=== PATIENT | female | born 1950 | race Caucasian/White ===

== ENCOUNTER 2018-05-25 12:29 | Inpatient (IN) ==
--- NOTE | 2018-05-25 13:18 | Emergency Department Note ---
Disposition Clinical Impression: Encephalitis Fever Qualifiers: Fever type: unspecified Qualified Code(s): R50.9 - Fever, unspecified Headache Qualifiers: Headache type: unspecified Headache chronicity pattern: acute headache Intractability: not intractable Qualified Code(s): R51 - Headache Leukocytosis Qualifiers: Leukocytosis type: unspecified Qualified Code(s): D72.829 - Elevated white blood cell count, unspecified Disposition: Admitted As Inpatient Condition: Good Forms: ED Satisfaction Letter General Adult HPI - General Chief complaint: ED Headache Stated complaint: General Time Seen by Provider: 05/25/18 13:02 Source: patient Limitations: no limitations Nursing Notes Reviewed: Yes Vital Signs Reviewed: Yes - History of Present Illness HPI Narrative: The patient presents today from PCP where she had been evaluated for one week of generalized weakness associated with headache. At the PCP office she was found to have a fever of 101. Patient does present with document fever of 101 and PCP notes. Patient states until then she did not realize she was febrile. Patient was found to have a heart rate of greater than 90 and was sent to the emergency department secondary to concern for sepsis. On exam the patient is complaining of generalized body aches weakness and fatigue. She states that she has had a headache for the last 5 days which she relates to her history of migraines. Patient states that she has pain in her neck which is on the right side and has a specific trigger point around C2. The patient states that she has not had a cough she has not had night sweats she has not had any abdominal pain nausea vomiting constipation diarrhea or urinary complaints. Weakness workup and infectious workup have been initiated. Pain Scale: 10 - Related Data Home Medications Medication Instructions Recorded Confirmed Levothyroxine [Synthroid] 50 mcg PO 0630 05/25/18 05/25/18 Omeprazole [PriLOSEC] 40 mg PO DAILY 05/25/18 05/25/18 Raloxifene [Evista] 60 mg PO DAILY 05/25/18 05/25/18 Ramelteon [Rozerem] 8 mg PO HS 05/25/18 05/25/18 SUMAtriptan Succinate [Imitrex] 100 mg PO DAILY PRN 05/25/18 05/25/18 Simvastatin [Zocor] 10 mg PO HS 05/25/18 05/25/18 Topiramate [Topamax] 50 mg PO BID 05/25/18 05/25/18 Tramadol HCl [Ultram] 50 mg PO Q4H PRN 05/25/18 05/25/18 Allergies Allergy/AdvReac Type Severity Reaction Status Date / Time Cortisone Allergy Difficulty Verified 08/14/15 15:32 Breathing Review of Systems: CONSTITUTIONAL: Fever chills with weakness and fatigue HEENT: Eyes: No visual changes. Ears, Nose, Throat: No hearing loss, difficulty talking or unable to swallow. SKIN: No rash or itching. CARDIOVASCULAR: No chest pain, chest pressure or chest discomfort. No palpitations or edema. RESPIRATORY: No shortness of breath, cough or sputum. GASTROINTESTINAL: No anorexia, nausea, vomiting or diarrhea. No abdominal pain or blood. GENITOURINARY: No burning on urination or hematuria. NEUROLOGICAL: Headache and confusion No dizziness, syncope, paralysis, ataxia, numbness or tingling in the extremities. No change in bowel or bladder control. MUSCULOSKELETAL: No muscle pain, back pain, joint pain or stiffness. Past Medical History - Past Medical History Medical history: Reports: no medical history, asthma, GERD, migraine, thyroid disease Psychiatric history: Reports: no psych history AIRCRAFT REFUELER history: Reports: no AIRCRAFT REFUELER history - Social History Smoking Status: Never smoker Smokeless Tobacco Status: No Alcohol use: Reports: none Physical Exam General: patient states that she just feels weak and headache on her forehead. Patient holds the top of her eyebrows Head: Normocephalic Atraumatic Eyes: PERRL, EOMI ENT: Airway patent, no stridor Neck: supple, no meningismus Chest: Lungs clear to auscultation bilateral Cardiac: Regular rate and rhythm, no murmurs, rubs or gallops Abdomen: soft, nontender, nondistended; no guarding, rebound, or tenderness to percussion Musculoskeletal: Calves symmetric, nontender Skin: No rash, normal skin tone Neuro: Alert and Oriented to person, place, and time; No focal deficit, CN 2-12 symmetric and intact - General Limitations: no limitations General appearance: alert Course - Reevaluation(s) Reevaluation #1: Patient receiving fluids. Patient has been unable to urinate for urine sample. I did discuss with her that she has been here for prolonged period of time without a urine sample should get a straight catheter in order to rule out urinary tract infection. Patient pulled out IV because she states it was hurting her. Nurses attempting a different IV. Reevaluation #2: Urinalysis results do not show significant infection. Her white blood cell count is elevated at 16. Her vital signs have been stable while she has been here with no significant fever. I did further discuss my concerns with both and the patient. She has not felt any better with fluids. Her headache is a frontal headache at this time. Neck pain is on the right side. She has not had any specific sick contacts and has no other signs of infection. I have discussed with them doing an LP. I discussed the risks and benefits. They do understand that due to her headaches and fever she will benefit from having meningitis and encephalitis ruled out. Blood cultures will be obtained. Antibiotics and acyclovir will be started. Patient has no signs of cancer and no neurologic lateralizing features. At this time the patient has had a prolonged stay in the emergency department. Workup is for fever. Head CT was deferred. Further discussions with the patient that did not make it into the initial H&P were episodes of confusion last night she was very irritable and short with the . Was answering yes no questions. She did have several episodes of stuttering while in the emergency department which is uncharacteristic for her. LP was performed by Dr. Chapa. I was present during the entirety of the procedure. First attempt with clear draining fluid. Fluid has been sent for further evaluation. Further fluids antibiotics and acyclovir will be ordered. Patient will be admitted to the hospitalist. - Consultations Consultation #1: Discussed with hospitalist. Patient accepted for admission. Vital Signs Temperature 98.1 F 05/25/18 12:36 Pulse Rate 101 05/25/18 12:36 Respiratory Rate 16 05/25/18 12:36 Blood Pressure 151/77 05/25/18 12:36 O2 Sat by Pulse Oximetry 100 05/25/18 12:36 Temperature 98.1 F 05/25/18 12:36 Pulse Rate 101 05/25/18 12:36 Respiratory Rate 16 05/25/18 12:36 Blood Pressure 151/77 05/25/18 12:36 O2 Sat by Pulse Oximetry 100 05/25/18 12:36 Oxygen Delivery Oxygen Delivery Room Air Medical Decision Making - Medical Records Medical records reviewed: Yes I reviewed the patient's medical records. - Lab Data Lab results reviewed: Yes I reviewed the patient's lab results. Result diagrams: 05/25/18 13:26 05/25/18 13:26 Lab Results 05/25/18 05/25/18 05/25/18 Range/Units 13:26 13:26 13:26 WBC 16.6 H (4.3-11.1) K/mcL RBC 3.89 (3.82-4.97) M/mcL Hgb 11.8 (11.5-15.4) g/dL Hct 36.6 (35.3-44.9) % MCV 94.1 (83.0-100.0) fL MCH 30.3 (28.0-33.3) pg MCHC 32.2 (31.6-35.5) g/dL RDW 12.7 (11.5-14.5) % Plt Count 275 (140-400) K/mcL MPV 9.5 (9.4-12.4) fL Immature Gran % 0.7 (0-4) % Seg Neutrophils % 76.2 % Lymphocytes % 14.1 % Monocytes % 8.8 % Eosinophils % 0.0 % Basophils % 0.2 % Neutrophils # 12.7 H (1.6-8.9) K/mcL Lymphocytes # 2.3 (0.6-4.6) K/mcL Monocytes # 1.5 H (0.0-1.3) K/mcL Eosinophils # 0.0 (0.0-0.6) K/mcL Basophils # 0.0 (0.0-0.2) K/mcL Sodium 138 (136-145) mEq/L Potassium 3.9 (3.5-5.1) mEq/L Chloride 109 H (98-107) mEq/L Carbon Dioxide 23 (23-29) mEq/L BUN 15 (8-23) mg/dL Creatinine 0.84 (0.60-1.20) mg/dL Est GFR ( Amer) > 60 (> 60) Est GFR (Non-Af Amer) > 60 (> 60) BUN/Creatinine Ratio 18 (6-26) Glucose 132 H (70-105) mg/dL Calculated Osmolality 289 (280-300) Calcium 8.4 L (8.6-10.3) mg/dL Total Bilirubin 0.5 (0.3-1.0) mg/dL AST 17 (13-39) Units/L ALT 12 (7-52) Units/L Alkaline Phosphatase 50 (34-104) Units/L Troponin I 0.04 H* (< 0.04) ng/mL Serum Total Protein 6.0 L (6.4-8.9) g/dL Albumin 4.0 (3.5-5.7) g/dL Globulin 2.0 L (2.4-3.5) g/dL Albumin/Globulin Ratio 2.0 (1.1-2.2) TSH 0.444 (0.340-5.600) mcIU/mL Urine Color (Yellow) Urine Clarity (Clear) Urine pH (5.0-8.0) pH Units Ur Specific [place] (1.010-1.025) Urine Protein (Neg-Trace) mg/dL Urine Glucose (UA) (Normal) mg/dL Urine Ketones (Negative) mg/dL Urine Blood (Negative) Urine Nitrite (Negative) Urine Bilirubin (Negative) Urine Urobilinogen (Normal) mg/dL Ur Leukocyte Esterase (Negative) Urine Microscopic RBC (0-3) per hpf Urine Microscopic WBC (0-3) per hpf Ur Squamous Epith Cells (None-Few) per lpf Urine Bacteria (None-Few) per hpf Hyaline Casts (None-Few) per lpf Ur Culture Indicated? (NO) 05/25/18 Range/Units 17:13 WBC (4.3-11.1) K/mcL RBC (3.82-4.97) M/mcL Hgb (11.5-15.4) g/dL Hct (35.3-44.9) % MCV (83.0-100.0) fL MCH (28.0-33.3) pg MCHC (31.6-35.5) g/dL RDW (11.5-14.5) % Plt Count (140-400) K/mcL MPV (9.4-12.4) fL Immature Gran % (0-4) % Seg Neutrophils % % Lymphocytes % % Monocytes % % Eosinophils % % Basophils % % Neutrophils # (1.6-8.9) K/mcL Lymphocytes # (0.6-4.6) K/mcL Monocytes # (0.0-1.3) K/mcL Eosinophils # (0.0-0.6) K/mcL Basophils # (0.0-0.2) K/mcL Sodium (136-145) mEq/L Potassium (3.5-5.1) mEq/L Chloride (98-107) mEq/L Carbon Dioxide (23-29) mEq/L BUN (8-23) mg/dL Creatinine (0.60-1.20) mg/dL Est GFR ( Amer) (> 60) Est GFR (Non-Af Amer) (> 60) BUN/Creatinine Ratio (6-26) Glucose (70-105) mg/dL Calculated Osmolality (280-300) Calcium (8.6-10.3) mg/dL Total Bilirubin (0.3-1.0) mg/dL AST (13-39) Units/L ALT (7-52) Units/L Alkaline Phosphatase (34-104) Units/L Troponin I (< 0.04) ng/mL Serum Total Protein (6.4-8.9) g/dL Albumin (3.5-5.7) g/dL Globulin (2.4-3.5) g/dL Albumin/Globulin Ratio (1.1-2.2) TSH (0.340-5.600) mcIU/mL Urine Color Yellow (Yellow) Urine Clarity Clear (Clear) Urine pH 7.0 (5.0-8.0) pH Units Ur Specific [place] 1.016 (1.010-1.025) Urine Protein Trace (Neg-Trace) mg/dL Urine Glucose (UA) Normal (Normal) mg/dL Urine Ketones 15 H (Negative) mg/dL Urine Blood Trace H (Negative) Urine Nitrite Negative (Negative) Urine Bilirubin Negative (Negative) Urine Urobilinogen Normal (Normal) mg/dL Ur Leukocyte Esterase Negative (Negative) Urine Microscopic RBC 5-15 H (0-3) per hpf Urine Microscopic WBC 0-3 (0-3) per hpf Ur Squamous Epith Cells Many H (None-Few) per lpf Urine Bacteria None Seen (None-Few) per hpf Hyaline Casts None Seen (None-Few) per lpf Ur Culture Indicated? NO (NO) - Radiology Data Radiology results reviewed: Yes I reviewed the patient's radiology results. - EKG Data EKG #1 EKG attestation: Yes I reviewed and interpreted this EKG. EKG results narrative: EKG shows sinus rhythm with heart rate 99. CO interval 152. QRS 87. QTC 478. No significant ST elevations or depressions.
[2018-05-25 13:39] LABS: Basophils % 0.2 %; Hematocrit 36.6 % (35.3-44.9); Hemoglobin 11.8 g/dL (11.5-15.4); Immature Granulocytes % 0.7 % (0-4); Lymphocytes # 2.3 K/mcL (0.6-4.6); Lymphocytes % 14.1 %; Mean Corpuscular HGB Conc 32.2 g/dL (31.6-35.5); Mean Corpuscular Hemoglobin 30.3 pg (28.0-33.3); Mean Corpuscular Volume 94.1 fL (83.0-100.0); Mean Platelet Volume 9.5 fL (9.4-12.4); Monocytes # 1.5 K/mcL (0.0-1.3); Monocytes % 8.8 %; Platelet Count 275 K/mcL (140-400); Red Blood Count 3.89 M/mcL (3.82-4.97); Red Cell Distribution Width 12.7 % (11.5-14.5); Segmented Neutrophils % 76.2 %
[2018-05-25 13:40] LABS: Neutrophils # 12.7 K/mcL (1.6-8.9)
[2018-05-25 14:01] LABS: Alanine Aminotransferase 12 Units/L (7-52); Alkaline Phosphatase 50 Units/L (34-104); Aspartate Amino Transferase 17 Units/L (13-39); BUN/Creatinine Ratio 18 (6-26); Bilirubin,Total 0.5 mg/dL (0.3-1.0); Blood Urea Nitrogen 15 mg/dL (8-23); Calcium 8.4 mg/dL (8.6-10.3); Carbon Dioxide 23 mEq/L (23-29); Chloride 109 mEq/L (98-107); Glucose 132 mg/dL (70-105); Osmolality,Calculated 289 (280-300); Potassium 3.9 mEq/L (3.5-5.1); Sodium 138 mEq/L (136-145); eGFR For Non-African Americans > 60 (> 60)
[2018-05-25 14:05] LABS: Troponin I 0.04 ng/mL (< 0.04)
[2018-05-25] MEDS ORDERED: 0.9 % Sodium Chloride 1,000 ML IVC ONE ×2 (14:31→17:38)
[2018-05-25 17:22] LABS: Bilirubin,Urine Negative (Negative); Blood,Urine Trace (Negative); Clarity,Urine Clear (Clear); Color,Urine Yellow (Yellow); Glucose,Urine (UA) Normal (Normal); Ketones,Urine 15 mg/dL (Negative); Leukocyte Esterase,Urine Negative (Negative); Nitrite,Urine Negative (Negative); Protein,Urine Trace mg/dL (Neg-Trace); Specific Gravity,Urine 1.016 (1.010-1.025); Urobilinogen,Urine Normal (Normal)
[2018-05-25 17:25] LABS: Bacteria,Urine None Seen per hpf (None-Few); Hyaline Casts,Urine None Seen per lpf (None-Few); Squamous Epithelial Cell,Urine Many per lpf (None-Few); WBC,Urine 0-3 per hpf (0-3)
[2018-05-25] MEDS ORDERED: Metoclopramide 10 MG/2 ML VIAL IVP STA (17:37)
[2018-05-25] MEDS ORDERED: Ketorolac 15 MG/ML VIAL IVP STA (17:37)
--- NOTE | 2018-05-25 19:14 | Emergency Department Note ---
Disposition Clinical Impression: Encephalitis Fever Qualifiers: Fever type: unspecified Qualified Code(s): R50.9 - Fever, unspecified Headache Qualifiers: Headache type: unspecified Headache chronicity pattern: acute headache Intractability: not intractable Qualified Code(s): R51 - Headache Leukocytosis Qualifiers: Leukocytosis type: unspecified Qualified Code(s): D72.829 - Elevated white blood cell count, unspecified Disposition: Admitted As Inpatient Condition: Good General Adult HPI - General Chief complaint: ED Headache Stated complaint: General Time Seen by Provider: 05/25/18 13:02 Source: patient Limitations: no limitations Nursing Notes Reviewed: Yes Vital Signs Reviewed: Yes - History of Present Illness HPI Narrative: This note was opened primarily for documentation of the lumbar puncture that was performed by myself, Dr. Shaffer, with Dr. Alvarenga present at patient bedside during the procedure. Please refer to his chart for a completed documentation of the patient's visit. Pain Scale: 10 - Related Data Home Medications Medication Instructions Recorded Confirmed Levothyroxine [Synthroid] 50 mcg PO 0630 05/25/18 05/25/18 Omeprazole [PriLOSEC] 40 mg PO DAILY 05/25/18 05/25/18 Raloxifene [Evista] 60 mg PO DAILY 05/25/18 05/25/18 Ramelteon [Rozerem] 8 mg PO HS 05/25/18 05/25/18 SUMAtriptan Succinate [Imitrex] 100 mg PO DAILY PRN 05/25/18 05/25/18 Simvastatin [Zocor] 10 mg PO HS 05/25/18 05/25/18 Topiramate [Topamax] 50 mg PO BID 05/25/18 05/25/18 Tramadol HCl [Ultram] 50 mg PO Q4H PRN 05/25/18 05/25/18 Allergies Allergy/AdvReac Type Severity Reaction Status Date / Time Cortisone Allergy Difficulty Verified 08/14/15 15:32 Breathing Past Medical History - Past Medical History Medical history: Reports: no medical history, asthma, GERD, migraine, thyroid disease Psychiatric history: Reports: no psych history MANAGER PRIVATE history: Reports: no MANAGER PRIVATE history - Social History Smoking Status: Never smoker Smokeless Tobacco Status: No Alcohol use: Reports: none Physical Exam - General Limitations: no limitations General appearance: alert Course Vital Signs Temperature 98.1 F 05/25/18 12:36 Pulse Rate 101 05/25/18 12:36 Respiratory Rate 16 05/25/18 12:36 Blood Pressure 151/77 05/25/18 12:36 O2 Sat by Pulse Oximetry 100 05/25/18 12:36 Temperature 98.5 F 05/28/18 08:28 Pulse Rate 84 05/28/18 08:28 Respiratory Rate 20 05/28/18 08:28 Blood Pressure 135/79 05/28/18 08:28 O2 Sat by Pulse Oximetry 100 05/28/18 08:28 Oxygen Delivery Oxygen Delivery Room Air Procedures - Lumbar Puncture Consent Obtained: verbal consent, written consent Time Out Performed: Yes Patient Position: left lateral decubitus Skin Prep: Povidone-Iodine 1% Local Anesthetic: lidocaine 1% Spinal Needle Gauge: 20G Interspace Used: L3-L4 Fluid Initially Obtained: clear Complications: none Medical Decision Making - Lab Data Result diagrams: 05/28/18 05:26 05/28/18 11:48 Lab Results 05/25/18 05/25/18 05/25/18 Range/Units 13:26 13:26 13:26 WBC 16.6 H (4.3-11.1) K/mcL RBC 3.89 (3.82-4.97) M/mcL Hgb 11.8 (11.5-15.4) g/dL Hct 36.6 (35.3-44.9) % MCV 94.1 (83.0-100.0) fL MCH 30.3 (28.0-33.3) pg MCHC 32.2 (31.6-35.5) g/dL RDW 12.7 (11.5-14.5) % Plt Count 275 (140-400) K/mcL MPV 9.5 (9.4-12.4) fL Immature Gran % 0.7 (0-4) % Seg Neutrophils % 76.2 % Lymphocytes % 14.1 % Monocytes % 8.8 % Eosinophils % 0.0 % Basophils % 0.2 % Neutrophils # 12.7 H (1.6-8.9) K/mcL Lymphocytes # 2.3 (0.6-4.6) K/mcL Monocytes # 1.5 H (0.0-1.3) K/mcL Eosinophils # 0.0 (0.0-0.6) K/mcL Basophils # 0.0 (0.0-0.2) K/mcL Sodium 138 (136-145) mEq/L Potassium 3.9 (3.5-5.1) mEq/L Chloride 109 H (98-107) mEq/L Carbon Dioxide 23 (23-29) mEq/L BUN 15 (8-23) mg/dL Creatinine 0.84 (0.60-1.20) mg/dL Est GFR ( Amer) > 60 (> 60) Est GFR (Non-Af Amer) > 60 (> 60) BUN/Creatinine Ratio 18 (6-26) Glucose 132 H (70-105) mg/dL Calculated Osmolality 289 (280-300) Lactic Acid (0.5-2.2) mmol/L Calcium 8.4 L (8.6-10.3) mg/dL Total Bilirubin 0.5 (0.3-1.0) mg/dL AST 17 (13-39) Units/L ALT 12 (7-52) Units/L Alkaline Phosphatase 50 (34-104) Units/L Troponin I 0.04 H* (< 0.04) ng/mL Serum Total Protein 6.0 L (6.4-8.9) g/dL Albumin 4.0 (3.5-5.7) g/dL Globulin 2.0 L (2.4-3.5) g/dL Albumin/Globulin Ratio 2.0 (1.1-2.2) TSH 0.444 (0.340-5.600) mcIU/mL Urine Color (Yellow) Urine Clarity (Clear) Urine pH (5.0-8.0) pH Units Ur Specific [place] (1.010-1.025) Urine Protein (Neg-Trace) mg/dL Urine Glucose (UA) (Normal) mg/dL Urine Ketones (Negative) mg/dL Urine Blood (Negative) Urine Nitrite (Negative) Urine Bilirubin (Negative) Urine Urobilinogen (Normal) mg/dL Ur Leukocyte Esterase (Negative) Urine Microscopic RBC (0-3) per hpf Urine Microscopic WBC (0-3) per hpf Ur Squamous Epith Cells (None-Few) per lpf Urine Bacteria (None-Few) per hpf Hyaline Casts (None-Few) per lpf Ur Culture Indicated? (NO) CSF Volume mL CSF Appearance (Clear) CSF Color (Colorless) CSF RBC (0.000 - 0.002) M/mcL CSF Tot Nucleated Cells (0-5) TNC/mcL CSF Seg Neutrophils % CSF Band Neutrophils % CSF Lymphocytes % % CSF Monocytes % % CSF Eosinophils % CSF Basophils % CSF Other Cells % % CSF Glucose (40-70) mg/dL CSF Xanth Comm (Not Observe) CSF Total Protein (15-45) mg/dL HSV I Glycoprot G IgG (<=0.89) IV HSV II Glycoprot G IgG (<=0.89) IV 05/25/18 05/25/18 05/25/18 Range/Units 17:13 18:51 18:57 WBC (4.3-11.1) K/mcL RBC (3.82-4.97) M/mcL Hgb (11.5-15.4) g/dL Hct (35.3-44.9) % MCV (83.0-100.0) fL MCH (28.0-33.3) pg MCHC (31.6-35.5) g/dL RDW (11.5-14.5) % Plt Count (140-400) K/mcL MPV (9.4-12.4) fL Immature Gran % (0-4) % Seg Neutrophils % % Lymphocytes % % Monocytes % % Eosinophils % % Basophils % % Neutrophils # (1.6-8.9) K/mcL Lymphocytes # (0.6-4.6) K/mcL Monocytes # (0.0-1.3) K/mcL Eosinophils # (0.0-0.6) K/mcL Basophils # (0.0-0.2) K/mcL Sodium (136-145) mEq/L Potassium (3.5-5.1) mEq/L Chloride (98-107) mEq/L Carbon Dioxide (23-29) mEq/L BUN (8-23) mg/dL Creatinine (0.60-1.20) mg/dL Est GFR ( Amer) (> 60) Est GFR (Non-Af Amer) (> 60) BUN/Creatinine Ratio (6-26) Glucose (70-105) mg/dL Calculated Osmolality (280-300) Lactic Acid (0.5-2.2) mmol/L Calcium (8.6-10.3) mg/dL Total Bilirubin (0.3-1.0) mg/dL AST (13-39) Units/L ALT (7-52) Units/L Alkaline Phosphatase (34-104) Units/L Troponin I (< 0.04) ng/mL Serum Total Protein (6.4-8.9) g/dL Albumin (3.5-5.7) g/dL Globulin (2.4-3.5) g/dL Albumin/Globulin Ratio (1.1-2.2) TSH (0.340-5.600) mcIU/mL Urine Color Yellow (Yellow) Urine Clarity Clear (Clear) Urine pH 7.0 (5.0-8.0) pH Units Ur Specific [place] 1.016 (1.010-1.025) Urine Protein Trace (Neg-Trace) mg/dL Urine Glucose (UA) Normal (Normal) mg/dL Urine Ketones 15 H (Negative) mg/dL Urine Blood Trace H (Negative) Urine Nitrite Negative (Negative) Urine Bilirubin Negative (Negative) Urine Urobilinogen Normal (Normal) mg/dL Ur Leukocyte Esterase Negative (Negative) Urine Microscopic RBC 5-15 H (0-3) per hpf Urine Microscopic WBC 0-3 (0-3) per hpf Ur Squamous Epith Cells Many H (None-Few) per lpf Urine Bacteria None Seen (None-Few) per hpf Hyaline Casts None Seen (None-Few) per lpf Ur Culture Indicated? NO (NO) CSF Volume 4.0 mL CSF Appearance Clear (Clear) CSF Color Colorless (Colorless) CSF RBC < 0.002 (0.000 - 0.002) M/mcL CSF Tot Nucleated Cells 56 H* (0-5) TNC/mcL CSF Seg Neutrophils 56.0 % CSF Band Neutrophils % Test Not Performed CSF Lymphocytes % 24.0 % CSF Monocytes % 12.0 % CSF Eosinophils % Test Not Performed CSF Basophils % Test Not Performed CSF Other Cells % 8.0 % CSF Glucose 71 H (40-70) mg/dL CSF Xanth Comm Not Observed (Not Observe) CSF Total Protein 59 H (15-45) mg/dL HSV I Glycoprot G IgG 0.51 (<=0.89) IV HSV II Glycoprot G IgG 0.01 (<=0.89) IV 05/25/18 05/25/18 Range/Units 23:02 23:02 WBC (4.3-11.1) K/mcL RBC (3.82-4.97) M/mcL Hgb (11.5-15.4) g/dL Hct (35.3-44.9) % MCV (83.0-100.0) fL MCH (28.0-33.3) pg MCHC (31.6-35.5) g/dL RDW (11.5-14.5) % Plt Count (140-400) K/mcL MPV (9.4-12.4) fL Immature Gran % (0-4) % Seg Neutrophils % % Lymphocytes % % Monocytes % % Eosinophils % % Basophils % % Neutrophils # (1.6-8.9) K/mcL Lymphocytes # (0.6-4.6) K/mcL Monocytes # (0.0-1.3) K/mcL Eosinophils # (0.0-0.6) K/mcL Basophils # (0.0-0.2) K/mcL Sodium (136-145) mEq/L Potassium (3.5-5.1) mEq/L Chloride (98-107) mEq/L Carbon Dioxide (23-29) mEq/L BUN (8-23) mg/dL Creatinine (0.60-1.20) mg/dL Est GFR ( Amer) (> 60) Est GFR (Non-Af Amer) (> 60) BUN/Creatinine Ratio (6-26) Glucose (70-105) mg/dL Calculated Osmolality (280-300) Lactic Acid 0.8 (0.5-2.2) mmol/L Calcium (8.6-10.3) mg/dL Total Bilirubin (0.3-1.0) mg/dL AST (13-39) Units/L ALT (7-52) Units/L Alkaline Phosphatase (34-104) Units/L Troponin I 0.06 H* (< 0.04) ng/mL Serum Total Protein (6.4-8.9) g/dL Albumin (3.5-5.7) g/dL Globulin (2.4-3.5) g/dL Albumin/Globulin Ratio (1.1-2.2) TSH (0.340-5.600) mcIU/mL Urine Color (Yellow) Urine Clarity (Clear) Urine pH (5.0-8.0) pH Units Ur Specific [place] (1.010-1.025) Urine Protein (Neg-Trace) mg/dL Urine Glucose (UA) (Normal) mg/dL Urine Ketones (Negative) mg/dL Urine Blood (Negative) Urine Nitrite (Negative) Urine Bilirubin (Negative) Urine Urobilinogen (Normal) mg/dL Ur Leukocyte Esterase (Negative) Urine Microscopic RBC (0-3) per hpf Urine Microscopic WBC (0-3) per hpf Ur Squamous Epith Cells (None-Few) per lpf Urine Bacteria (None-Few) per hpf Hyaline Casts (None-Few) per lpf Ur Culture Indicated? (NO) CSF Volume mL CSF Appearance (Clear) CSF Color (Colorless) CSF RBC (0.000 - 0.002) M/mcL CSF Tot Nucleated Cells (0-5) TNC/mcL CSF Seg Neutrophils % CSF Band Neutrophils % CSF Lymphocytes % % CSF Monocytes % % CSF Eosinophils % CSF Basophils % CSF Other Cells % % CSF Glucose (40-70) mg/dL CSF Xanth Comm (Not Observe) CSF Total Protein (15-45) mg/dL HSV I Glycoprot G IgG (<=0.89) IV HSV II Glycoprot G IgG (<=0.89) IV
[2018-05-25 19:23] LABS: Red Blood Cell,CSF < 0.002 M/mcL
[2018-05-25] MEDS ORDERED: Ampicillin 2 GM in 0.9 % Sodium Chloride Mini Bag 100 ML IVPB ONE (19:27)
[2018-05-25] MEDS ORDERED: Acyclovir 600 MG in D5% in Water 250 ML IVPB ONE (19:29)
[2018-05-25 19:57] LABS: Glucose,CSF 71 mg/dL (40-70); Total Protein,CSF 59 mg/dL (15-45)
[2018-05-25] MEDS ORDERED: cefTRIAXone 2,000 MG in Water for inj. (sterile) 20 ML 20 ML IVP ONE (20:00)
[2018-05-25] MEDS: Aspirin 325 MG TABLET PO SCH (20:15)
[2018-05-25 20:36] LABS: Appearance,CSF Clear (Clear)
[2018-05-25] MEDS ORDERED: Naloxone 0.4 MG/ML INJ IVP PRN (22:22)
[2018-05-25] MEDS ORDERED: Ondansetron 4 MG/2 ML VIAL IVP PRN (22:36)
--- NOTE | 2018-05-25 22:51 | Internal Med History&Physical ---
Date of Encounter: 05/25/18 Time of Encounter: 22:47 Internal Medicine - H&P: HPI Chief complaint: headache Admitted From: Home Plans for Post Hospital Care: Home History of present illness: Ms. Butler is a 67 year old female who presented from PCP office after being found to have fever 101. Patient reports that in the past week she has been very fatigued and has a headache that is located on the left temporal aspect, which was throbbing in nature and did not improve with sumatriptan. She reports usually her migraines are easily relieved by triptans. Headache radiates down to the neck. Patient denied recent upper respiratory tract infection, sick contacts, nausea, vomiting, diarrhea, abdominal pain, chest pain , shortness of breath, photophobia, phonophobia, blurry vision, double vision, syncope. She has a history of rheumatoid arthritis post does not take any immunosuppressants. She denies sick contacts. She denies being started on the medications. Past Med Surg Social Fam HX - Past Medical History Medical history: no medical history, asthma, GERD, migraine, thyroid disease Psychiatric history: no psych history - Past Surgical History Additional surgical history: Hysterectomy - Social History Smoking Status: Never smoker Smokeless Tobacco Status: No Alcohol use: none Internal Medicine - H&P: Meds Levothyroxine [Synthroid] 50 mcg PO 0630 05/25/18 [History] Omeprazole [PriLOSEC] 40 mg PO DAILY 05/25/18 [History] Raloxifene [Evista] 60 mg PO DAILY 05/25/18 [History] Ramelteon [Rozerem] 8 mg PO HS 05/25/18 [History] SUMAtriptan Succinate [Imitrex] 100 mg PO DAILY PRN 05/25/18 [History] Simvastatin [Zocor] 10 mg PO HS 05/25/18 [History] Topiramate [Topamax] 50 mg PO BID 05/25/18 [History] Tramadol HCl [Ultram] 50 mg PO Q4H PRN 05/25/18 [History] 3 Allergy/AdvReac Type Severity Reaction Status Date / Time Cortisone Allergy Difficulty Verified 08/14/15 15:32 Breathing All Systems PM: A 10-system review of systems was performed and is negative for pertinent findings except as documented above in the HPI. Review of systems: Constitutional: Reports fevers, chills HEENT: Ports headaches. Denies trauma, blurry vision, eye discharge, ear pain, ear discharge neck pain, sore throat, rhinorrhea Heart: Denies chest pain palpitations, LE edema Lungs: Denies shortness of breath cough Abdomen: Denies abdominal pain nausea vomiting diarrhea MSK: Denies back pain, falls, joint pain Kidney: Denies dysuria, hematuria Skin: Denies rash, ulcers Neuro: Denies numbness and tingling Psych: denies axniety, depression - Constitutional Vitals: Temp Pulse Resp BP Pulse Ox 102.8 F H 100 12 136/74 100 05/25/18 21:19 05/25/18 21:19 05/25/18 21:19 05/25/18 21:19 05/25/18 21:19 Exam: General: pleasant, agitated, moderate distress HEENT: Head atraumatic, normocephalic, EOMI, PERRL, absent ear discharge or trauma, Moist Mucous Membranes, uvula midline Neck: nontender to palpation, absent lymphadenopathy, Cardiovascualr: Regular rate and rhythm with no murmur, absent gallops or rubs, absent pedal edema, radial pulses 2 out of 4 Lungs: Clear to auscultation bilaterally, not in respiratory distress Abdomen: Soft nontender, nondistended positive bowel sounds, absent hepatomegaly Skin: warm and dry, absent rash, absent open wounds and nodules MSK: absent clubbing, cyanosis, joints without swelling Neuro: Cranial nerves II through XII intact, UE and LE sensation equal bilaterally, UE and LEstrength 5/5, alert oriented 3, Psych: good insight and judgment, anxious Internal Med - H&P Results - Labs CBC & Chem 7: 05/25/18 13:26 05/25/18 13:26 - Assessment and plan (1) Sepsis Current Visit: Yes Status: Acute Assessment and plan: 2nd to meningitis Leukocytosis, tachycardic, febrile Lactic acid pending Patient received 2 L normal saline UDS negative for infection CXR negative for acute changes Plan: Started on IV acyclovir, vancomycin, ampicillin, ceftriaxone Qualifiers: Sepsis type: sepsis due to unspecified organism Qualified Code(s): A41.9 - Sepsis, unspecified organism (2) Meningitis Current Visit: Yes Status: Acute Assessment and plan: CSF total cells 56, 24% lymphocyte, 54% neutrophils, and 12% monocytes, glucose 71, total protein 59 She reports headache, fatigue positive brudinskis sign CT head negative CSF collected and sent for culture blood cultures drawn CSF HSV 1/2 glycoprotein sent likely aseptic meningitis due to elevated protein and glucose level plan: MRI head to rule out encephalitis, started on acyclovir, vancomycin, ceftriaxone, and ampicillin (3) Rheumatoid arthritis Current Visit: Yes Status: Chronic Assessment and plan: Patient has history of rheumatoid arthritis Reports she is not on any immunosuppressants Qualifiers: Rheumatoid arthritis location: unspecified site Rheumatoid factor presence : unspecified presence Qualified Code(s): M06.9 - Rheumatoid arthritis, unspecified (4) Hypothyroidism Current Visit: Yes Status: Chronic Assessment and plan: Patient has a history of hypothyroidism TSH within normal limits Continue levothyroxine Qualifiers: Hypothyroidism type: unspecified Qualified Code(s): E03.9 - Hypothyroidism , unspecified (5) GERD (gastroesophageal reflux disease) Current Visit: Yes Status: Chronic Assessment and plan: Patient has a history of GERD Continue omeprazole Qualifiers: Esophagitis presence: esophagitis presence not specified Qualified Code(s) : K21.9 - Gastro-esophageal reflux disease without esophagitis (6) Congenital absence of one kidney Current Visit: Yes Status: Chronic - Time Spent With Patient Total time spent is greater than 50% in coordination of care (as documented) at patient's floor/unit and/or counseling patient:
[2018-05-26] MEDS ORDERED: Acyclovir 600 MG in D5% in Water 100 ML IVPB SCH
[2018-05-26] MEDS: D5 IVPB SCH ×3 (01:06→18:05)
[2018-05-26] MEDS: WATER IVPB SCH ×3 (01:06→18:05)
[2018-05-26] MEDS: ACYCLOVIR IVPB SCH ×3 (01:06→18:05)
[2018-05-26] MEDS: Ampicillin 2 GM in 0.9 % Sodium Chloride Mini Bag 100 ML IVPB SCH ×4 (01:40→16:20)
[2018-05-26] MEDS: *HR* Heparin 5,000 UNIT/ML VIAL SQ SCH ×4 (01:41→22:39)
[2018-05-26 05:19] LABS: Basophils % 0.2 %; Eosinophils % 0.1 %; Hematocrit 34.4 % (35.3-44.9); Hemoglobin 11.1 g/dL (11.5-15.4); Immature Granulocytes % 0.5 % (0-4); Lymphocytes # 2.5 K/mcL (0.6-4.6); Lymphocytes % 18.5 %; Mean Corpuscular HGB Conc 32.3 g/dL (31.6-35.5); Mean Corpuscular Hemoglobin 29.8 pg (28.0-33.3); Mean Corpuscular Volume 92.5 fL (83.0-100.0); Mean Platelet Volume 9.4 fL (9.4-12.4); Monocytes # 1.4 K/mcL (0.0-1.3); Monocytes % 10.7 %; Neutrophils # 9.4 K/mcL (1.6-8.9); Platelet Count 259 K/mcL (140-400); Red Blood Count 3.72 M/mcL (3.82-4.97); Red Cell Distribution Width 12.5 % (11.5-14.5)
[2018-05-26 05:54] LABS: BUN/Creatinine Ratio 14 (6-26); Blood Urea Nitrogen 10 mg/dL (8-23); Calcium 7.7 mg/dL (8.6-10.3); Carbon Dioxide 20 mEq/L (23-29); Chloride 113 mEq/L (98-107); Glucose 126 mg/dL (70-105); Osmolality,Calculated 293 (280-300); Potassium 3.1 mEq/L (3.5-5.1); Sodium 141 mEq/L (136-145); eGFR For Non-African Americans > 60 (> 60)
[2018-05-26] MEDS: Acetaminophen 325 MG TABLET PO PRN (06:21)
[2018-05-26] MEDS: Aspirin 325 MG TABLET PO SCH (08:06)
[2018-05-26] MEDS: Topiramate 25 MG TABLET PO SCH ×2 (08:06→22:38)
[2018-05-26] MEDS ORDERED: Aminoglycoside Consult 1 EACH MC ONE (08:27)
[2018-05-26] MEDS ORDERED: Potassium Chloride Elixir 20 MEQ/15 ML UDC PO ONE (08:38)
--- NOTE | 2018-05-26 08:40 | Electrocardiograph Report ---
[place] [employer] Test Date: 2018-05-25 Pat Name: Arlet Butler Department: [id number] Room: 2A41 Gender: F Visual Effects Artist: : 1950 Requested By: [id number] Order Number: [id number] Reading MD: José Olvera Measurements Intervals [place] Rate: 99 P: 55 ID: [id number] QRS: 19 QRSD: 97 T: 36 QT: 372 QTc: 478 Interpretive Statements Sinus rhythm Probable left atrial enlargement RSR' in V1 or V2, right VCD or RVH Electronically Signed On 05-26-2018 8:39:12 EDT by José Olvera
--- NOTE | 2018-05-26 09:53 | Neurology - Consult Note ---
<Manav Ramos P - Last Filed: 05/26/18 11:48> Date of Encounter: 05/26/18 Time of Encounter: 09:00 Assessment and Plan (1) Meningitis Current Visit: Yes Status: Acute The patient has persisted moderately severe headache with nausea and vomiting , photophobia in the background of fever, neck pain with mild stiffness favours suspicion of Meningitis( aseptic vs partially treated bacterial ) .Recent LP report shows slightly elevated protein, normal glucose , a little high neutrophil (CSF analysis: colorless/clear, no Xanthocromia, Glucose 71, Protein 59 , Neutrophil 56 ) CSF gram stain shows moderate white cells and no bacteria seen . CT head shows no acute intracranial abnormality .MRI head , CSF culture report awaited, HSV 1 & 2 glycoprotein report awaited .The patient is already on vancomycin ,ampicillin, ceftriaxone and acyclovir History of Present Illness Chief complaint: Headache , fatigue with fever . HPI: Ms. Butler is a 67 year old female presented to [facility] for felling fatigue, severe throbbing type of headache . She states that she never felt febrile , but temperature recorded at PCP office was 101 .She is a chronic patient of migraine , but this time her headache was not improved with migraine medication /sumitriptan and she has more severe headache with nausea, vomiting ,photophobia and feeling fatigue for a week . The patient states that she has neck pain but denies severe neck stiffness . She is a patient of Rheumatoid arthritis , but not any taking immunosupressive medication.The patient denies any seizure like activities, weakness in limbs, recent upper respiratory tract infection, sick contacts, diarrhea, abdominal pain, chest pain, shortness of breath, syncope, rash, tick bites, recent travel, flu like symptoms in the past . During my visit, the patient was lying in the bed, awake , oriented to time place and person. She has difficulty to open her eyes in bright light . Her vitals: Tem 102.*F / 100.6*F( today), pulse 95, BP 135/71 TLC 16.4 , Neutrophil 9.4 ,Na 141, K 3.1, glucose 126 , CRP 23 CSF analysis: colorless, clear, no Xanthocromia, Glucose 71, Protein 59 , Neutrophil 56 Urine : ketone and blood positive ( RBC 5-15) Head CT : no acute intracranial abnormality CSF culture awaited HSV 1 & 2 Glycoprotein , lagionella antigen pending , MRI head : awaited Past Med Surg Social Fam HX - Past Medical History Medical history: no medical history, asthma, GERD, migraine, thyroid disease Psychiatric history: no psych history - Past Surgical History Surgical History: hysterectomy Additional surgical history: Hysterectomy - Social History Smoking Status: Never smoker Smokeless Tobacco Status: No Alcohol use: none Medications and Allergies Levothyroxine [Synthroid] 50 mcg PO 0630 05/25/18 [History] Omeprazole [PriLOSEC] 40 mg PO DAILY 05/25/18 [History] Raloxifene [Evista] 60 mg PO DAILY 05/25/18 [History] Ramelteon [Rozerem] 8 mg PO HS 05/25/18 [History] SUMAtriptan Succinate [Imitrex] 100 mg PO DAILY PRN 05/25/18 [History] Simvastatin [Zocor] 10 mg PO HS 05/25/18 [History] Topiramate [Topamax] 50 mg PO BID 05/25/18 [History] Tramadol HCl [Ultram] 50 mg PO Q4H PRN 05/25/18 [History] 3 Allergy/AdvReac Type Severity Reaction Status Date / Time Cortisone Allergy Difficulty Verified 08/14/15 15:32 Breathing All Systems: The remainder of the systems were reviewed and are negative Physical Examination - Vital Signs Vital Signs: Initial Vital Signs Temp Pulse Resp BP Pulse Ox 98.1 F 101 16 151/77 100 05/25/18 12:36 05/25/18 12:36 05/25/18 12:36 05/25/18 12:36 05/25/18 12:36 - Constitutional General appearance: comfortable - Neurologic Sensorimotor examination: intact Detailed motor examination: grossly full strength in all extremities Motor examination - right side: 5/5: deltoids, biceps, triceps, wrist flexion, wrist extension, senior principal architect, hip flexors, tibialis Anterior, quadriceps, toe extension (EHL) Motor examination - left side: 5/5: deltoids, biceps, triceps, wrist flexion, wrist extension, hip flexors, senior principal architect, quadriceps, tibialis Anterior, toe extension (EHL), plantarflexion Detailed sensory examination: intact Reflex and gait examination: intact Reflexes: Biceps: 2+, Triceps: 2+, Brachioradialis: 2+, Patella: 2+, Achilles: 2 + Mental Status Examination: awake, alert, oriented to person, oriented to place, follows commands appropriately, answers questions appropriately, no aphasia Cranial nerve examination: PERRL, EOMI, visual dunn intact, sensory to face intact, no facial asymmetry is present Cerebellar examination: no dysmetria, performs finger to nose and heel to loredo symmetrically without ataxia Results - Laboratory Findings CBC and BMP: 05/26/18 05:06 05/26/18 05:06 Abnormal lab findings: Abnormal lab results WBC 13.4 K/mcL (4.3-11.1) H 05/26/18 05:06 RBC 3.72 M/mcL (3.82-4.97) L 05/26/18 05:06 Hgb 11.1 g/dL (11.5-15.4) L 05/26/18 05:06 Hct 34.4 % (35.3-44.9) L 05/26/18 05:06 Neutrophils # 9.4 K/mcL (1.6-8.9) H 05/26/18 05:06 Monocytes # 1.4 K/mcL (0.0-1.3) H 05/26/18 05:06 Potassium 3.1 mEq/L (3.5-5.1) L 05/26/18 05:06 Chloride 113 mEq/L (98-107) H 05/26/18 05:06 Carbon Dioxide 20 mEq/L (23-29) L 05/26/18 05:06 Glucose 126 mg/dL (70-105) H 05/26/18 05:06 Calcium 7.7 mg/dL (8.6-10.3) L 05/26/18 05:06 Troponin I 0.04 ng/mL (< 0.04) H* 05/26/18 05:06 C-Reactive Protein 23 mg/L (Less than 10) H 05/26/18 08:32 Serum Total Protein 6.0 g/dL (6.4-8.9) L 05/25/18 13:26 Globulin 2.0 g/dL (2.4-3.5) L 05/25/18 13:26 Urine Ketones 15 mg/dL (Negative) H 05/25/18 17:13 Urine Blood Trace (Negative) H 05/25/18 17:13 Urine Microscopic RBC 5-15 per hpf (0-3) H 05/25/18 17:13 Ur Squamous Epith Cells Many per lpf (None-Few) H 05/25/18 17:13 CSF Tot Nucleated Cells 56 TNC/mcL (0-5) H* 05/25/18 18:57 CSF Glucose 71 mg/dL (40-70) H 05/25/18 18:57 CSF Total Protein 59 mg/dL (15-45) H 05/25/18 18:57 Consult Discharge Plan - Plan Referrals: Payton Paz CNP [Primary Care Provider] - <Malachi Mak - Last Filed: 05/26/18 15:54> Date of Encounter: 05/26/18 Time of Encounter: 15:41 Assessment and Plan (1) Meningitis Current Visit: Yes Status: Acute It seems that we are more than likely dealing with aseptic meningitis. However there is a possibility of partially treated bacterial meningitis or even herpes encephalitis. The patient reports some confusion and states that she is very somnolent initially. However currently she is very close to her normal baseline. She has had a significant improvement in her headache. We simply awaiting the final cultures and PCR studies. Recommend continuing broad- spectrum antibiotic therapy including acyclovir until the cultures PCR have returned. History of Present Illness HPI: The chart was reviewed, the patient was seen and examined personally. The case was discussed with the neurology resident on service. Ms. Butler is a 67 year old female who is being seen for neurologic consultation at the request of the hospitalist secondary to suspicion of a central nervous system infectious process. Patient informed me that she has been experiencing significant headache, fever and malaise over the last several days. She does inform me that she was extremely somnolent and did have some confusion. The CT scan of the brain did not reveal evidence of temporal lobe enhancement, stroke, abscess. CSF analysis revealed was a clear and colorless no xanthochromia identified Gram stain revealed no bacteria present however there are moderate amount of WBCs present. Clinically patient is improved today as she states her headache is about a 5 on a scale of 10, CSF cultures are pending. She is no longer febrile. No seizures or focality were identified on her neurologic exam. All Systems: The remainder of the systems were reviewed and are negative Review of Systems: The balance of the systems review is negative. Physical Examination - Vital Signs Vital Signs: Initial Vital Signs Temp Pulse Resp BP Pulse Ox 98.1 F 101 16 151/77 100 05/25/18 12:36 05/25/18 12:36 05/25/18 12:36 05/25/18 12:36 05/25/18 12:36 - Neurologic Detailed motor examination: full strength in all major muscle groups Motor examination - right side: 5: deltoids, biceps, triceps, wrist flexion, wrist extension, senior principal architect, hip flexors, tibialis Anterior, quadriceps, toe extension (EHL), plantarflexion Motor examination - left side: 01/09: deltoids, biceps, triceps, wrist flexion, wrist extension, hip flexors, senior principal architect, quadriceps, tibialis Anterior, toe extension (EHL), plantarflexion Mental Status Examination: awake, alert, oriented to person, oriented to place, oriented to time, follows commands appropriately, answers questions appropriately, no agnosia, no aphasia, no aproxia Cranial nerve examination: PERRL, EOMI, visual dunn intact, corneal reflexes brisk symmetrically, sensory to face intact, mastication intact, no facial asymmetry is present, no dysarthria, hearing is intact symmetrically, soft palate elevates bilaterally upon phonation, gag reflex intact, flexes SCM and trapezius muscles symmetrically with full power, tongue protrudes midline, no atrophy or facial fasiculations present Cerebellar examination: no dysmetria, performs finger to nose and heel to loredo symmetrically without ataxia, no gait ataxia, no truncal ataxia, no difficulty with rapid alternating movements Results - Laboratory Findings CBC and BMP: 05/26/18 05:06 05/26/18 13:38 Abnormal lab findings: Abnormal lab results WBC 13.4 K/mcL (4.3-11.1) H 05/26/18 05:06 RBC 3.72 M/mcL (3.82-4.97) L 05/26/18 05:06 Hgb 11.1 g/dL (11.5-15.4) L 05/26/18 05:06 Hct 34.4 % (35.3-44.9) L 05/26/18 05:06 Neutrophils # 9.4 K/mcL (1.6-8.9) H 05/26/18 05:06 Monocytes # 1.4 K/mcL (0.0-1.3) H 05/26/18 05:06 Chloride 113 mEq/L (98-107) H 05/26/18 05:06 Carbon Dioxide 20 mEq/L (23-29) L 05/26/18 05:06 Glucose 126 mg/dL (70-105) H 05/26/18 05:06 Calcium 7.7 mg/dL (8.6-10.3) L 05/26/18 05:06 Troponin I 0.04 ng/mL (< 0.04) H* 05/26/18 05:06 C-Reactive Protein 23 mg/L (Less than 10) H 05/26/18 08:32 Serum Total Protein 6.0 g/dL (6.4-8.9) L 05/25/18 13:26 Globulin 2.0 g/dL (2.4-3.5) L 05/25/18 13:26 Urine Ketones 15 mg/dL (Negative) H 05/25/18 17:13 Urine Blood Trace (Negative) H 05/25/18 17:13 Urine Microscopic RBC 5-15 per hpf (0-3) H 05/25/18 17:13 Ur Squamous Epith Cells Many per lpf (None-Few) H 05/25/18 17:13 CSF Tot Nucleated Cells 56 TNC/mcL (0-5) H* 05/25/18 18:57 CSF Glucose 71 mg/dL (40-70) H 05/25/18 18:57 CSF Total Protein 59 mg/dL (15-45) H 05/25/18 18:57
[2018-05-26] MEDS ORDERED: cefTRIAXone 2,000 MG in Water for inj. (sterile) 20 ML 20 ML IVP SCH (10:00)
[2018-05-26 10:24] LABS: Magnesium 1.8 mg/dL (1.6-2.6)
--- NOTE | 2018-05-26 10:54 | Internal Med Progress Note ---
<Anthony Finley - Last Filed: 05/26/18 14:52> Hospitalist Progress Note - Encounter Date of Encounter: 05/26/18 Time of Encounter: 10:38 - Subjective Interval History: Ms. Butler was admitted yesterday for sepsis secondary to suspected acute meningitis CSF indicated viral or bacterial meningitis, culture pending, MRI brain pending Broad spectrum Acyclovir, Vancomycin, Ampicillin, Ceftriaxone She complains of continued headache, nausea and vomiting She denies confusion or focal deficits - Exam Vitals: Temp Pulse Resp BP Pulse Ox 100.6 F H 95 16 135/71 99 05/26/18 07:57 05/26/18 07:57 05/26/18 07:57 05/26/18 07:57 05/26/18 07:57 Exam: Patient in no acute distress, Alert and oriented x 3 Cranial nerves 2-12 intact Heart in regular rate and rhythm without murmur or gallop Lungs clear to auscultation Abdomen soft and non tender with normal bowel sounds present Bilateral lower extremities non edematous 4/4 extremities 5/5 motor strength and normal sensation Kernig and Brudzinski signs negative - Assessment and Plan (1) Meningitis Current Visit: Yes Status: Acute Assessment and Plan: CSF total cells 56, 24% lymphocyte, 54% neutrophils, and 12% monocytes, glucose 71, total protein 59, culture pending She reports headache, nausea, vomiting positive brudinskis sign at admission, negative today, CT head negative at admission blood cultures pending CSF HSV 1/2 glycoprotein sent likely aseptic meningitis due to elevated protein and glucose level plan: MRI head to rule out encephalitis Day 2 on acyclovir, vancomycin, ceftriaxone, and ampicillin Zofran and phenergan for nausea Patient subjective and objective exam improving Continue empiric antimicrobials and wait for culture results (2) Sepsis Current Visit: Yes Status: Acute Assessment and Plan: 2nd to meningitis Leukocytosis, tachycardic, febrile at admission Leukocytosis improved, still febrile and tachycardic Lactic acid 0.8 on 05/25 Patient received 2 L normal saline at admission UDS negative for infection CXR negative for acute changes Plan: Day 2 IV acyclovir, vancomycin, ampicillin, ceftriaxone Patient clinically improved, tolerating oral intake MIVF 60ml/hr LR Rest of plan as seen above (3) Rheumatoid arthritis Current Visit: Yes Status: Chronic Assessment and Plan: Patient has history of rheumatoid arthritis Reports she is not on any immunosuppressants Confirmed by pharmacy (4) Hypothyroidism Current Visit: Yes Status: Chronic Assessment and Plan: Patient has a history of hypothyroidism TSH within normal limits Continue levothyroxine (5) GERD (gastroesophageal reflux disease) Current Visit: Yes Status: Chronic Assessment and Plan: Patient has a history of GERD Continue omeprazole (6) Congenital absence of one kidney Current Visit: Yes Status: Chronic Assessment and Plan: Trending renal function labs Will continue to monitor (7) Elevated troponin Current Visit: Yes Status: Resolved Assessment and Plan: Troponin elevated 0.04 at admission, repeat 0.06, repeat today 0.04 Troponins no longer climbing Original elevation likely secondary to demand ischemia Patient did not complain of chest pain or shortness of breath at admission or today We will continue to monitor DVT Prophylaxis: heparin 5000 units sq q8hr - Time Spent with Patient Total time spent is greater than 50% in coordination of care (as documented) at patient's floor/unit and/or counseling patient: Internal Medicine: Result - Labs CBC & Chem 7: 05/26/18 05:06 05/26/18 13:38 Labs: Short CBC 05/26/18 Range/Units 05:06 WBC 13.4 H (4.3-11.1) K/mcL Hgb 11.1 L (11.5-15.4) g/dL Hct 34.4 L (35.3-44.9) % Plt Count 259 (140-400) K/mcL Neutrophils # 9.4 H (1.6-8.9) K/mcL BMP 05/26/18 05:06 Sodium 141 Potassium 3.1 L Chloride 113 H Carbon Dioxide 20 L BUN 10 Creatinine 0.73 Glucose 126 H Calcium 7.7 L Cardiac Enzymes 05/26/18 Range/Units 05:06 Troponin I 0.04 H* (< 0.04) ng/mL Consult Discharge Plan - Plan Referrals: Payton Paz, [employer] [Primary Care Provider] - <Laurita Hill - Last Filed: 05/26/18 17:28> Hospitalist Progress Note - Encounter Date of Encounter: 05/26/18 - Exam Vitals: Temp Pulse Resp BP Pulse Ox 99.6 F 106 16 162/74 96 05/26/18 16:55 05/26/18 16:55 05/26/18 16:55 05/26/18 16:55 05/26/18 16:55 - Assessment and Plan (1) Meningitis Current Visit: Yes Status: Acute (2) Sepsis Current Visit: Yes Status: Acute (3) Rheumatoid arthritis Current Visit: Yes Status: Chronic (4) Hypothyroidism Current Visit: Yes Status: Chronic (5) GERD (gastroesophageal reflux disease) Current Visit: Yes Status: Chronic (6) Congenital absence of one kidney Current Visit: Yes Status: Chronic (7) Elevated troponin Current Visit: Yes Status: Resolved - Time Spent with Patient Total time spent is greater than 50% in coordination of care (as documented) at patient's floor/unit and/or counseling patient: Internal Medicine: Result - Labs CBC & Chem 7: 05/26/18 05:06 05/26/18 13:38 Labs: Short CBC 05/26/18 Range/Units 05:06 WBC 13.4 H (4.3-11.1) K/mcL Hgb 11.1 L (11.5-15.4) g/dL Hct 34.4 L (35.3-44.9) % Plt Count 259 (140-400) K/mcL Neutrophils # 9.4 H (1.6-8.9) K/mcL BMP 05/26/18 05/26/18 05:06 13:38 Sodium 141 Potassium 3.1 L 3.8 Chloride 113 H Carbon Dioxide 20 L BUN 10 Creatinine 0.73 Glucose 126 H Calcium 7.7 L Cardiac Enzymes 05/26/18 Range/Units 05:06 Troponin I 0.04 H* (< 0.04) ng/mL - Attending Attestation I examined this patient and my medical decision-making was reviewed with the Resident Physician Dr. Finley. I agree with the documented findings, disposition and treatment plan as described except to the extent set forth below. Ms. Butler is a 67-year-old female with a known past medical history of asthma , Gerd, migraines and hypothyroidism patient who has been having confusion headache neck pain and fever from most 10 to 14 days went to primary care office yesterday with fever headache and confusion. Patient was sent to ER for further evaluation. She had LP done in the ER, her CSF fluid analysis is concerning for bacterial infection. Patient was admitted in the hospital and started on broad-spectrum antibiotic and acyclovir. Patient still complaining on and off headaches. Gen: A, A, O x 3 Chest : Diminished BS b/l Neuro: No meningitis signs.. A, A, O x 3. No neuro deficits a/p 1. Acute toxic / infectious encephalitis 2. Possible bacterial meningitis reviewed her CSF fluid analysis depending on her symptoms it looks more like a toxic encephalitis will follow-up on MRI of the brain continue broad-spectrum antibiotic ampicillin, Rocephin, vancomycin and acyclovir Neuro and ID consulted will follow-up on HSV, Listeria and fluid culture <Anthony Finley - Last Filed: 05/26/18 14:52> (2) Sepsis Qualifiers: Sepsis type: sepsis due to unspecified organism Qualified Code(s): A41.9 - Sepsis, unspecified organism (3) Rheumatoid arthritis Qualifiers: Rheumatoid arthritis location: unspecified site Rheumatoid factor presence: unspecified presence Qualified Code(s): M06.9 - Rheumatoid arthritis, unspecified (4) Hypothyroidism Qualifiers: Hypothyroidism type: unspecified Qualified Code(s): E03.9 - Hypothyroidism, unspecified (5) GERD (gastroesophageal reflux disease) Qualifiers: Esophagitis presence: esophagitis presence not specified Qualified Code(s): K21.9 - Gastro-esophageal reflux disease without esophagitis <Laurita Hill - Last Filed: 05/26/18 17:28> (2) Sepsis Qualifiers: Sepsis type: sepsis due to unspecified organism Qualified Code(s): A41.9 - Sepsis, unspecified organism (3) Rheumatoid arthritis Qualifiers: Rheumatoid arthritis location: unspecified site Rheumatoid factor presence: unspecified presence Qualified Code(s): M06.9 - Rheumatoid arthritis, unspecified (4) Hypothyroidism Qualifiers: Hypothyroidism type: unspecified Qualified Code(s): E03.9 - Hypothyroidism, unspecified (5) GERD (gastroesophageal reflux disease) Qualifiers: Esophagitis presence: esophagitis presence not specified Qualified Code(s): K21.9 - Gastro-esophageal reflux disease without esophagitis
[2018-05-26] MEDS ORDERED: Ringers Solution, Lactated 1,000 ML IVC SCH (12:30)
--- NOTE | 2018-05-26 19:10 | Infectious Disease Consult ---
Date of Encounter: 05/26/18 Time of Encounter: 19:04 Assessment and Plan (1) Aseptic meningitis Status: Acute Assessment and plan: Causative organism not clear but this is viral meningitis based on the CSF findings, gram stains and the clinical picture. Patient only has one kidney so I will de-escalate antibiotics. Await HSV PCR and VZV PCR Clinically this does not appear to be HSV encephalitis. Patient's mentation is fully intact and this is strictly meningitis I think. We will also stop the acyclovir. We will check respiratory infectious panel see if the patient has any viral infection. Appreciate neurology recommendations. I think this is aseptic meningitis has had take a few days for the fever did subside and for her symptoms improved. May DC droplet isolation. (2) Photophobia Status: Acute (3) Headache Status: Acute Qualifiers: Headache type: unspecified Headache chronicity pattern: acute headache Intractability: not intractable Qualified Code(s): R51 - Headache (4) Sepsis Status: Acute Assessment and plan: Patient has 3 SIRS criteria on admission. Secondary to aseptic meningitis Improving Qualifiers: Sepsis type: sepsis due to unspecified organism Qualified Code(s): A41.9 - Sepsis, unspecified organism (5) Rheumatoid arthritis Status: Chronic Assessment and plan: Patient not taking any medications currently. Might benefit from rheumatology consult as an outpatient per primary team. Qualifiers: Rheumatoid arthritis location: unspecified site Rheumatoid factor presence : unspecified presence Qualified Code(s): M06.9 - Rheumatoid arthritis, unspecified (6) Elevated troponin Status: Resolved Infectious Disease HPI - Data of Consult Patient: new to practice Consult date: 05/26/18 Requesting Physician: Kim De Oliveira MD Primary Care Provider: Payton Paz CNP - Consult Narrative Reason for consult: meningitis History of present illness: Ms. Butler is a 67 year old female Patient is a 67-year-old woman who presented to [place] on 05/25/2018 with feeling weak and fatigued and achy all over and headache. We are consulted for meningitis. Patient is 67-year-old woman with past medical history mentioned below including rheumatoid arthritis that apparently she is not taking anything for because she only has one kidney that she was born with. Apparently she tried Humira or methotrexate in the past and infected her kidney so she stopped them. Patient also has asthma, GERD, migraine and thyroid disease tells me that about 3 weeks ago she had an acute rheumatoid arthritis flare. Patient tells me that usually flares last a few days and then they go away but this one lasted a very long time and Mr. Flaherty very weak and tired. Patient denies taking any steroids or any DMARD. Patient does not take any NSAIDs either. Patient tells me a few days prior to admission started having weakness and generalized fatigue and generalized aches and then had some headaches. Patient decided to come to the ED for evaluation. On further questioning patient denies any travel history. She lives alone does not have any children and grandchildren. Patient denies any sick contacts. Patient denied any tick bites or mosquito bites. Patient denied any sinusitis or toothache or tooth abscess or going to the dentist recently. Patient denies any earache or ear infection recently. Since admission, patient has been febrile with a MAXIMUM TEMPERATURE of 102.8 Fahrenheit, tachycardic, but otherwise hemodynamically stable. Presenting labs revealed a WBC of 16.6 with normal differential and no bands. Patient's creatinine was 0.84 and patient had no lactic acidosis. A urinalysis was negative. Patient had an LP done which revealed some pleocytosis with a nucleated cells of 56 mildly elevated protein at 59 and glucose 71. CSF Gram stain was negative and cultures are no growth to date. Patient also had urine legionella and pneumococcal antigen done both of which came back negative. Blood cultures obtained 2 and 2 out of 2 sets were negative on 05/25/2018. CT of the head showed no acute abnormalities. Chest x-ray was negative. CC: Kim De Oliveira MD Past Med Surg Social Fam HX - Past Medical History Medical history: no medical history, asthma, GERD, migraine, thyroid disease Psychiatric history: no psych history - Past Surgical History Surgical History: hysterectomy Additional surgical history: Hysterectomy - Social History Smoking Status: Never smoker Smokeless Tobacco Status: No Alcohol use: none Infectious Disease-CN:Meds Levothyroxine [Synthroid] 50 mcg PO 0630 05/25/18 [History] Omeprazole [PriLOSEC] 40 mg PO DAILY 05/25/18 [History] Raloxifene [Evista] 60 mg PO DAILY 05/25/18 [History] Ramelteon [Rozerem] 8 mg PO HS 05/25/18 [History] SUMAtriptan Succinate [Imitrex] 100 mg PO DAILY PRN 05/25/18 [History] Simvastatin [Zocor] 10 mg PO HS 05/25/18 [History] Topiramate [Topamax] 50 mg PO BID 05/25/18 [History] Tramadol HCl [Ultram] 50 mg PO Q4H PRN 05/25/18 [History] 3 Allergy/AdvReac Type Severity Reaction Status Date / Time Cortisone Allergy Difficulty Verified 08/14/15 15:32 Breathing Review of systems: 10 point review of systems done, returned positive and negatives are mentioned in the history of present illness Exam - Constitutional Vitals: Temp Pulse Resp BP Pulse Ox 99.6 F 106 16 162/74 96 05/26/18 16:55 05/26/18 16:55 05/26/18 16:55 05/26/18 16:55 05/26/18 16:55 General appearance: febrile, cooperative, disheveled - Head Head exam: Present: atraumatic, normocephalic - Eye Eye exam: Present: EOMI, PERRL, sclera anicteric - ENT ENT exam: Present: mucous membranes dry Additional comments: No oral lesions and no cold sores - Neck Neck exam: Present: meningismus, normal inspection. Absent: lymphadenopathy - Respiratory Respiratory exam: Present: CTAB. Absent: wheezes - Cardiovascular Cardiovascular exam: Present: RRR, +S1, +S2 - GI/Abdominal GI/Abdominal exam: Present: normal bowel sounds, soft. Absent: tenderness - Extremities Exam Extremities exam: Present: full ROM, normal inspection - Back Exam Back exam: Present: normal inspection. Absent: vertebral tenderness - Neurological Exam Neurological exam: Present: alert, oriented X3. Absent: speech deficit - Psychiatric Psychiatric exam: Present: normal affect, normal mood - Skin Skin exam: Present: normal color. Absent: rash Infectious Disease CN: Results - Labs CBC & Chem 7: 05/27/18 05:27 05/27/18 05:27 Consult Discharge Plan - Plan Referrals: Payton Paz [employer] [Primary Care Provider] -
[2018-05-27] MEDS: Acetaminophen 325 MG TABLET PO PRN ×3 (00:14→17:51)
[2018-05-27 05:59] LABS: Basophils % 0.2 %; Eosinophils % 0.1 %; Hematocrit 33.7 % (35.3-44.9); Immature Granulocytes % 0.5 % (0-4); Lymphocytes # 3.4 K/mcL (0.6-4.6); Lymphocytes % 24.2 %; Mean Corpuscular HGB Conc 32.6 g/dL (31.6-35.5); Mean Corpuscular Hemoglobin 29.8 pg (28.0-33.3); Mean Corpuscular Volume 91.3 fL (83.0-100.0); Mean Platelet Volume 9.4 fL (9.4-12.4); Monocytes # 1.4 K/mcL (0.0-1.3); Monocytes % 10.3 %; Platelet Count 274 K/mcL (140-400); Red Blood Count 3.69 M/mcL (3.82-4.97); Red Cell Distribution Width 12.3 % (11.5-14.5); Segmented Neutrophils % 64.7 %
[2018-05-27] MEDS: *HR* Heparin 5,000 UNIT/ML VIAL SQ SCH ×3 (06:17→20:54)
[2018-05-27 06:47] LABS: BUN/Creatinine Ratio 9 (6-26); Blood Urea Nitrogen 7 mg/dL (8-23); Calcium 8.3 mg/dL (8.6-10.3); Carbon Dioxide 20 mEq/L (23-29); Chloride 108 mEq/L (98-107); Glucose 117 mg/dL (70-105); Osmolality,Calculated 283 (280-300); Potassium 3.7 mEq/L (3.5-5.1); Sodium 137 mEq/L (136-145); eGFR For Non-African Americans > 60 (> 60)
--- NOTE | 2018-05-27 08:14 | Neurology Progress Note ---
Date of Encounter: 05/27/18 Time of Encounter: 08:11 Assessment and Plan (1) Meningitis Current Visit: Yes Status: Acute I agree with IV that we are likely dealing with aseptic meningitis. Neuroimaging revealed no evidence of temporal lobe enhancement. In lieu of the fact that she does only have one kidney I agree to descalate the antibiotics. From a clinical perspective she is back to her baseline. I will reevaluate her at your request. Subjective Interval history: Chart was reviewed, pt. was seen and evaluated personally. She had an uneventful night. Pt resting in bed, easily aroused to voice to AAOx3. Denies headache this am. feel back to baseline. Appreciate ID assessment. Culture with no growth at 24 hours. Objective - Constitutional Vitals: Temp Pulse Resp BP Pulse Ox 100.3 F H 93 18 137/78 98 05/27/18 07:15 05/27/18 07:15 05/27/18 07:15 05/27/18 07:15 05/27/18 07:15 - Neurological Exam Sensorimotor examination: Present: intact Motor Examination: Present: full strength in all major muscle groups Motor examination - right side: 5/5: deltoids, biceps, triceps, wrist flexion, wrist extension, erp project manager, hip flexors, tibialis Anterior, quadriceps, toe extension (EHL), plantarflexion Motor examination - left side: 5/5: deltoids, biceps, triceps, wrist flexion, wrist extension, hip flexors, erp project manager, quadriceps, tibialis Anterior, toe extension (EHL), plantarflexion Sensation intact: Present: intact Reflex and gait examination: intact Mental Status Examination: Present: awake, alert, oriented to person, oriented to place, oriented to time, follows commands appropriately, answers questions appropriately, no agnosia, no aphasia, no aproxia Cranial nerve examination: Present: PERRL, EOMI, visual dunn intact, corneal reflexes brisk symmetrically, sensory to face intact, mastication intact, no facial asymmetry is present, no dysarthria, hearing is intact symmetrically, soft palate elevates bilaterally upon phonation, gag reflex intact, flexes SCM and trapezius muscles symmetrically with full power, tongue protrudes midline, no atrophy or facial fasiculations present Cerebellar examination: Present: no dysmetria, performs finger to nose and heel to loredo symmetrically without ataxia, no gait ataxia, no truncal ataxia, no difficulty with rapid alternating movements Results - Laboratory Findings CBC and BMP: 05/27/18 05:27 05/27/18 05:27 Abnormal lab findings: Abnormal lab results WBC 13.8 K/mcL (4.3-11.1) H 05/27/18 05:27 RBC 3.69 M/mcL (3.82-4.97) L 05/27/18 05:27 Hgb 11.0 g/dL (11.5-15.4) L 05/27/18 05:27 Hct 33.7 % (35.3-44.9) L 05/27/18 05:27 Neutrophils # 9.0 K/mcL (1.6-8.9) H 05/27/18 05:27 Monocytes # 1.4 K/mcL (0.0-1.3) H 05/27/18 05:27 Chloride 108 mEq/L (98-107) H 05/27/18 05:27 Carbon Dioxide 20 mEq/L (23-29) L 05/27/18 05:27 BUN 7 mg/dL (8-23) L 05/27/18 05:27 Glucose 117 mg/dL (70-105) H 05/27/18 05:27 Calcium 8.3 mg/dL (8.6-10.3) L 05/27/18 05:27 Venous Ioniz Calcium 1.10 mmol/L (1.15-1.35) L 05/26/18 17:23 Troponin I 0.04 ng/mL (< 0.04) H* 05/26/18 16:59 C-Reactive Protein 23 mg/L (Less than 10) H 05/26/18 08:32 Serum Total Protein 6.0 g/dL (6.4-8.9) L 05/25/18 13:26 Globulin 2.0 g/dL (2.4-3.5) L 05/25/18 13:26 Urine Ketones 15 mg/dL (Negative) H 05/25/18 17:13 Urine Blood Trace (Negative) H 05/25/18 17:13 Urine Microscopic RBC 5-15 per hpf (0-3) H 05/25/18 17:13 Ur Squamous Epith Cells Many per lpf (None-Few) H 05/25/18 17:13 CSF Tot Nucleated Cells 56 TNC/mcL (0-5) H* 05/25/18 18:57 CSF Glucose 71 mg/dL (40-70) H 05/25/18 18:57 CSF Total Protein 59 mg/dL (15-45) H 05/25/18 18:57 Consult Discharge Plan - Plan Referrals: Payton Paz, TERRI [Primary Care Provider] -
[2018-05-27] MEDS ORDERED: Potassium Chloride Elixir 20 MEQ/15 ML UDC PO ONE (09:00)
--- NOTE | 2018-05-27 09:22 | Internal Med Progress Note ---
<Anthony Finley - Last Filed: 05/27/18 16:32> Hospitalist Progress Note - Encounter Date of Encounter: 05/27/18 Time of Encounter: 09:18 - Subjective Interval History: Ms. uBtler was admitted yesterday for sepsis secondary to suspected acute meningitis CSF indicated viral or bacterial meningitis, culture pending, MRI brain showed chronic changes Broad spectrum Acyclovir, Vancomycin, Ampicillin, Ceftriaxone She states headache and nausea are greatly improved today She denies confusion or focal deficits - Exam Vitals: Temp Pulse Resp BP Pulse Ox 100.3 F H 93 18 137/78 98 05/27/18 07:15 05/27/18 07:15 05/27/18 07:15 05/27/18 07:15 05/27/18 07:15 Exam: Patient in no acute distress, Alert and oriented x 3 Cranial nerves 2-12 intact Heart in regular rate and rhythm without murmur or gallop Lungs clear to auscultation Abdomen soft and non tender with normal bowel sounds present Bilateral lower extremities non edematous 4/4 extremities 5/5 motor strength and normal sensation Kernig and Brudzinski signs negative - Assessment and Plan (1) Meningitis Current Visit: Yes Status: Acute Assessment and Plan: CSF total cells 56, 24% lymphocyte, 54% neutrophils, and 12% monocytes, glucose 71, total protein 59, culture pending She reports greatly improved headache, nausea positive brudinskis sign at admission, negative today, CT head negative at admission MRI brain negative for acute process, only chronic white matter changes blood cultures pending CSF HSV 1/2 glycoprotein sent likely aseptic meningitis due to elevated protein and glucose level plan: Day 3 on acyclovir, vancomycin, ceftriaxone, and ampicillin, all discontinued today Zofran and phenergan for nausea Patient subjective and objective exam improving Neurology consultation suspicious for aseptic meningitis, recommended stopping antimicrobial therapy (2) Sepsis Current Visit: Yes Status: Acute Assessment and Plan: 2nd to meningitis Leukocytosis, tachycardic, febrile at admission Leukocytosis improved, still febrile and tachycardic Lactic acid 0.8 on 05/25 Patient received 2 L normal saline at admission UDS negative for infection CXR negative for acute changes Plan: Day 3 IV acyclovir, vancomycin, ampicillin, ceftriaxone, all stopped Patient clinically improved, tolerating oral intake MIVF 60ml/hr LR discontinued Rest of plan as seen above (3) Rheumatoid arthritis Current Visit: Yes Status: Chronic Assessment and Plan: Patient has history of rheumatoid arthritis Reports she is not on any immunosuppressants Confirmed by pharmacy (4) Hypothyroidism Current Visit: Yes Status: Chronic Assessment and Plan: Patient has a history of hypothyroidism TSH within normal limits Continue levothyroxine (5) GERD (gastroesophageal reflux disease) Current Visit: Yes Status: Chronic Assessment and Plan: Patient has a history of GERD Continue omeprazole (6) Congenital absence of one kidney Current Visit: Yes Status: Chronic Assessment and Plan: Trending renal function labs Will continue to monitor (7) Elevated troponin Current Visit: Yes Status: Resolved Assessment and Plan: Troponin elevated 0.04 at admission, repeat 0.06, repeat yesterday 0.04 Troponins no longer climbing Original elevation likely secondary to demand ischemia Patient did not complain of chest pain or shortness of breath at admission or today We will continue to monitor DVT Prophylaxis: heparin 5000 units sq q8hr - Time Spent with Patient Total time spent is greater than 50% in coordination of care (as documented) at patient's floor/unit and/or counseling patient: Internal Medicine: Result - Labs CBC & Chem 7: 05/27/18 05:27 05/27/18 05:27 Labs: Short CBC 05/27/18 Range/Units 05:27 WBC 13.8 H (4.3-11.1) K/mcL Hgb 11.0 L (11.5-15.4) g/dL Hct 33.7 L (35.3-44.9) % Plt Count 274 (140-400) K/mcL Neutrophils # 9.0 H (1.6-8.9) K/mcL BMP 05/26/18 05/26/18 05/27/18 05:06 13:38 05:27 Sodium 141 137 Potassium 3.1 L 3.8 3.7 Chloride 113 H 108 H Carbon Dioxide 20 L 20 L BUN 10 7 L Creatinine 0.73 0.74 Glucose 126 H 117 H Calcium 7.7 L 8.3 L Cardiac Enzymes 05/26/18 Range/Units 16:59 Troponin I 0.04 H* (< 0.04) ng/mL Consult Discharge Plan - Plan Referrals: Payton Paz, TERRI [Primary Care Provider] - <Laurita Hill - Last Filed: 05/27/18 18:00> Hospitalist Progress Note - Encounter Date of Encounter: 05/27/18 - Exam Vitals: Temp Pulse Resp BP Pulse Ox 99.5 F 91 16 129/75 99 05/27/18 10:23 05/27/18 10:23 05/27/18 10:23 05/27/18 10:23 05/27/18 10:23 - Assessment and Plan (1) Meningitis Current Visit: Yes Status: Acute (2) Sepsis Current Visit: Yes Status: Acute (3) Rheumatoid arthritis Current Visit: Yes Status: Chronic (4) Hypothyroidism Current Visit: Yes Status: Chronic (5) GERD (gastroesophageal reflux disease) Current Visit: Yes Status: Chronic (6) Congenital absence of one kidney Current Visit: Yes Status: Chronic (7) Elevated troponin Current Visit: Yes Status: Resolved - Time Spent with Patient Total time spent is greater than 50% in coordination of care (as documented) at patient's floor/unit and/or counseling patient: Internal Medicine: Result - Labs CBC & Chem 7: 05/27/18 05:27 05/27/18 05:27 Labs: Short CBC 05/27/18 Range/Units 05:27 WBC 13.8 H (4.3-11.1) K/mcL Hgb 11.0 L (11.5-15.4) g/dL Hct 33.7 L (35.3-44.9) % Plt Count 274 (140-400) K/mcL Neutrophils # 9.0 H (1.6-8.9) K/mcL BMP 05/27/18 05:27 Sodium 137 Potassium 3.7 Chloride 108 H Carbon Dioxide 20 L BUN 7 L Creatinine 0.74 Glucose 117 H Calcium 8.3 L Cardiac Enzymes 05/26/18 Range/Units 16:59 Troponin I 0.04 H* (< 0.04) ng/mL - Attending Attestation I examined this patient and my medical decision-making was reviewed with the Resident Physician Dr. Finley. I agree with the documented findings, disposition and treatment plan as described except to the extent set forth below. Ms. Butler is a 67-year-old female with a known past medical history of asthma , Gerd, migraines and hypothyroidism patient who has been having confusion headache neck pain and fever from most 10 to 14 days went to primary care office yesterday with fever headache and confusion. Patient was sent to ER for further evaluation. She had LP done in the ER, her CSF fluid analysis is concerning for bacterial infection. Patient was admitted in the hospital and started on broad-spectrum antibiotic and acyclovir. Pt states she is feeing much better today. Gen: A, A, O x 3 Chest : Diminished BS b/l Neuro: No meningitis signs.. A, A, O x 3. No neuro deficits a/p 1. Aseptic meningitis MRI of the brain - no signs of encephalitis CSF fluid - No growth so far ID sugested to stop all the abx HSV, Varicella zoster - P <Anthony Finley - Last Filed: 05/27/18 16:32> (2) Sepsis Qualifiers: Sepsis type: sepsis due to unspecified organism Qualified Code(s): A41.9 - Sepsis, unspecified organism (3) Rheumatoid arthritis Qualifiers: Rheumatoid arthritis location: unspecified site Rheumatoid factor presence: unspecified presence Qualified Code(s): M06.9 - Rheumatoid arthritis, unspecified (4) Hypothyroidism Qualifiers: Hypothyroidism type: unspecified Qualified Code(s): E03.9 - Hypothyroidism, unspecified (5) GERD (gastroesophageal reflux disease) Qualifiers: Esophagitis presence: esophagitis presence not specified Qualified Code(s): K21.9 - Gastro-esophageal reflux disease without esophagitis <Laurita Hill - Last Filed: 05/27/18 18:00> (2) Sepsis Qualifiers: Sepsis type: sepsis due to unspecified organism Qualified Code(s): A41.9 - Sepsis, unspecified organism (3) Rheumatoid arthritis Qualifiers: Rheumatoid arthritis location: unspecified site Rheumatoid factor presence: unspecified presence Qualified Code(s): M06.9 - Rheumatoid arthritis, unspecified (4) Hypothyroidism Qualifiers: Hypothyroidism type: unspecified Qualified Code(s): E03.9 - Hypothyroidism, unspecified (5) GERD (gastroesophageal reflux disease) Qualifiers: Esophagitis presence: esophagitis presence not specified Qualified Code(s): K21.9 - Gastro-esophageal reflux disease without esophagitis
[2018-05-27] MEDS: Topiramate 25 MG TABLET PO SCH ×2 (09:29→20:54)
[2018-05-27] MEDS: Aspirin Enteric Coated 81 MG Tablet PO SCH (09:29)
--- NOTE | 2018-05-27 09:55 | Infectious Disease Progress No ---
Date of Encounter: 05/27/18 Time of Encounter: 09:40 - Assessment and Plan (1) Sepsis Current Visit: Yes Status: Acute Improved. Patient has 3 SIRS criteria on admission. Secondary to aseptic meningitis Qualifiers: Sepsis type: sepsis due to unspecified organism Qualified Code(s): A41.9 - Sepsis, unspecified organism (2) Aseptic meningitis Current Visit: Yes Status: Acute Clinically improved near to baseline. Causative organism not clear but this is viral meningitis based on the CSF findings, gram stains and the clinical picture. Patient only has one kidney so antibiotics discontinued. Await HSV PCR and VZV PCR Clinically this does not appear to be HSV encephalitis. Patient's mentation is fully intact and this is strictly meningitis I think. Acyclovir discontinued. CSF showed moderate WBC and no bacteria. CSF culture showed no growth at 24hr. Blood cultures drawn 05/25 x2 sets are NGTD. Check respiratory infectious panel to see if the patient has any viral infection. Neurology consulted and signed off. I think this is aseptic meningitis has had take a few days for the fever did subside and for her symptoms improved. Droplet isolation discontinued. (3) Headache Current Visit: Yes Status: Acute Improved. Qualifiers: Headache type: unspecified Headache chronicity pattern: acute headache Intractability: not intractable Qualified Code(s): R51 - Headache (4) Photophobia Current Visit: Yes Status: Acute Improved. (5) Elevated troponin Current Visit: Yes Status: Resolved Likely demand ischemia. - Subjective Interval history: Patient seen and examined. No acute events overnight. Nurse reports patient is much better and headache and nausea are improved. Reports patient still having "low grade fever" and has been getting "tylenol round the clock." Patient is resting comfortably in bed. She states she's feeling "a lot better" and ready to go home. States she can function again. Patient states headache is significantly improved to 3/10. Indicates headache is at occipital region. Admits some nausea, but significantly improved. Denies emesis. Admits some photophobia, but significantly improved. Denies neck pain. Denies fever, chills. Denies chest pain, shortness of breath. Denies abdominal pain, constipation/diarrhea. Denies urinary symptoms. Denies numbness/tingling. Denies swelling. Infect Dis PN-Objective Data - Labs CBC & Chem 7: 05/27/18 05:27 05/27/18 05:27 Labs: Laboratory Results - last 24 hr 05/26/18 05/26/18 05/26/18 05:06 13:38 16:59 WBC RBC Hgb Hct MCV MCH MCHC RDW Plt Count MPV Immature Gran % Seg Neutrophils % Lymphocytes % Monocytes % Eosinophils % Basophils % Neutrophils # Lymphocytes # Monocytes # Eosinophils # Basophils # Sodium 141 Potassium 3.1 L 3.8 Chloride 113 H Carbon Dioxide 20 L BUN 10 Creatinine 0.73 Est GFR ( Amer) > 60 Est GFR (Non-Af Amer) > 60 BUN/Creatinine Ratio 14 Glucose 126 H Calculated Osmolality 293 Calcium 7.7 L Venous Ioniz Calcium Magnesium 1.8 Troponin I 0.04 H* 05/26/18 05/27/18 05/27/18 17:23 05:27 05:27 WBC 13.8 H RBC 3.69 L Hgb 11.0 L Hct 33.7 L MCV 91.3 MCH 29.8 MCHC 32.6 RDW 12.3 Plt Count 274 MPV 9.4 Immature Gran % 0.5 Seg Neutrophils % 64.7 Lymphocytes % 24.2 Monocytes % 10.3 Eosinophils % 0.1 Basophils % 0.2 Neutrophils # 9.0 H Lymphocytes # 3.4 Monocytes # 1.4 H Eosinophils # 0.0 Basophils # 0.0 Sodium 137 Potassium 3.7 Chloride 108 H Carbon Dioxide 20 L BUN 7 L Creatinine 0.74 Est GFR ( Amer) > 60 Est GFR (Non-Af Amer) > 60 BUN/Creatinine Ratio 9 Glucose 117 H Calculated Osmolality 283 Calcium 8.3 L Venous Ioniz Calcium 1.10 L Magnesium Troponin I Exam - Constitutional Vitals: Temp Pulse Resp BP Pulse Ox 100.3 F H 93 18 137/78 98 05/27/18 07:15 05/27/18 07:15 05/27/18 07:15 05/27/18 07:15 05/27/18 07:15 General appearance: average body habitus, cooperative, no acute distress, no febrile - Head Head exam: Present: atraumatic, normal inspection, normocephalic - Eye Eye exam: Present: EOMI, normal appearance, PERRL - ENT ENT exam: Present: mucous membranes moist, normal oropharynx - Neck Neck exam: Present: full ROM (Negative Kernig's ), normal inspection, tenderness (Posterior neck and occipitum mildly tender to palpation. ) - Respiratory Respiratory exam: Present: CTAB. Absent: rales, respiratory distress, rhonchi, wheezes - Cardiovascular Cardiovascular exam: Present: RRR, +S1, +S2 - GI/Abdominal GI/Abdominal exam: Present: normal bowel sounds, soft. Absent: distended, tenderness - Extremities Exam Extremities exam: Present: normal inspection. Absent: joint swelling, pedal edema, tenderness - Neurological Exam Neurological exam: Present: altered, oriented X3, no focal deficits - Psychiatric Psychiatric exam: Present: normal affect, normal mood - Skin Skin exam: Present: dry, intact, normal color, warm Consult Discharge Plan - Plan Referrals: Payton Paz, BACK DIG[employer] OPERATOR [Primary Care Provider] - - Attending Attestation I examined this patient and my medical decision-making was reviewed with the Resident Physician. I agree with the documented findings, disposition and treatment plan as described except to the extent set forth below.
[2018-05-28] MEDS: Acetaminophen 325 MG TABLET PO PRN (01:56)
[2018-05-28 05:44] LABS: Basophils % 0.2 %; Eosinophils # 0.1 K/mcL (0.0-0.6); Eosinophils % 1.1 %; Hemoglobin 10.8 g/dL (11.5-15.4); Immature Granulocytes % 0.4 % (0-4); Lymphocytes % 32.5 %; Mean Corpuscular HGB Conc 32.7 g/dL (31.6-35.5); Mean Corpuscular Hemoglobin 29.7 pg (28.0-33.3); Mean Corpuscular Volume 90.7 fL (83.0-100.0); Mean Platelet Volume 9.1 fL (9.4-12.4); Monocytes # 0.9 K/mcL (0.0-1.3); Monocytes % 9.7 %; Neutrophils # 5.2 K/mcL (1.6-8.9); Platelet Count 245 K/mcL (140-400); Red Blood Count 3.64 M/mcL (3.82-4.97); Red Cell Distribution Width 12.2 % (11.5-14.5); Segmented Neutrophils % 56.1 %
[2018-05-28] MEDS: *HR* Heparin 5,000 UNIT/ML VIAL SQ SCH (06:10)
[2018-05-28 06:43] LABS: BUN/Creatinine Ratio 13 (6-26); Blood Urea Nitrogen 10 mg/dL (8-23); Calcium 8.2 mg/dL (8.6-10.3); Carbon Dioxide 20 mEq/L (23-29); Chloride 106 mEq/L (98-107); Glucose 90 mg/dL (70-105); Osmolality,Calculated 279 (280-300); Potassium 3.1 mEq/L (3.5-5.1); Sodium 135 mEq/L (136-145); eGFR For Non-African Americans > 60 (> 60)
[2018-05-28] MEDS ORDERED: Potassium Chloride Elixir 20 MEQ/15 ML UDC PO ONE (08:03)
[2018-05-28] MEDS: Aspirin Enteric Coated 81 MG Tablet PO SCH (08:28)
[2018-05-28] MEDS: Topiramate 25 MG TABLET PO SCH (08:28)
[2018-05-28 08:35] VITALS: BP 135/79
[2018-05-28 09:23] LABS: Magnesium 2.2 mg/dL (1.6-2.6); Potassium 3.1 mEq/L (3.5-5.1)
--- NOTE | 2018-05-28 09:23 | Discharge Summary ---
<Anthony Finley - Last Filed: 05/28/18 12:22> - NOTES TO OUTPATIENT PROVIDER Notes to Outpatient Provider: Patient admitted and treated for aseptic meningitis. She was treated with acyclovir, ampicillin, vancomycin, ceftriaxone. Lumbar puncture CSF sample indicated aseptic meningitis, the patient's clinical disposition gradually improved throughout the hospital course. Antimicrobial therapy was stopped and the patient continued to improve. Patient was discharged in stable medical disposition without symptoms. Orders not resulted at time of discharge: Pending orders 05/26/18 15:37 HSV DNA [MOLMIC] Stat 05/28/18 08:03 Ionized Calcium,venous blood Routine 05/28/18 08:15 Magnesium Routine Potassium Routine 05/29/18 04:00 BMP [Basic Metabolic Panel] AM 0400 Complete Blood Count [HEME] AM 0400 Date of Encounter: 05/28/18 Time of Encounter: 09:21 - Discharge Diagnosis (1) Meningitis Priority: Primary Status: Resolved Assessment and Plan: CSF total cells 56, 24% lymphocyte, 54% neutrophils, and 12% monocytes, glucose 71, total protein 59, culture pending positive brudinskis sign at admission, negative today, CT head negative at admission MRI brain negative for acute process, only chronic white matter changes No growth on blood cultures CSF HSV 1/2 glycoprotein pending likely aseptic meningitis due to elevated protein and glucose level plan: 3 days on acyclovir, vancomycin, ceftriaxone, and ampicillin, all discontinued Zofran and phenergan for nausea Patient subjective and objective exam resolved Stable for discharge (2) Sepsis Priority: Secondary Status: Resolved Assessment and Plan: Secondary to meningitis Leukocytosis, tachycardic, febrile at admission No white count, fever, or tachycardia today Lactic acid 0.8 on 05/25 UDS negative for infection CXR negative for acute changes Respiratory panel negative Plan: 3 Days IV acyclovir, vancomycin, ampicillin, ceftriaxone, all stopped 05/27 Patient clinically improved Rest of plan as seen above Qualifiers: Sepsis type: sepsis due to unspecified organism Qualified Code(s): A41.9 - Sepsis, unspecified organism (3) Rheumatoid arthritis Priority: Secondary Status: Chronic Assessment and Plan: Patient has history of rheumatoid arthritis Reports she is not on any immunosuppressants Confirmed by pharmacy Qualifiers: Rheumatoid arthritis location: unspecified site Rheumatoid factor presence : unspecified presence Qualified Code(s): M06.9 - Rheumatoid arthritis, unspecified (4) Hypothyroidism Priority: Secondary Status: Chronic Assessment and Plan: Patient has a history of hypothyroidism TSH within normal limits Continue levothyroxine Qualifiers: Hypothyroidism type: unspecified Qualified Code(s): E03.9 - Hypothyroidism , unspecified (5) GERD (gastroesophageal reflux disease) Priority: Secondary Status: Chronic Assessment and Plan: Patient has a history of GERD Continue omeprazole Qualifiers: Esophagitis presence: esophagitis presence not specified Qualified Code(s) : K21.9 - Gastro-esophageal reflux disease without esophagitis (6) Congenital absence of one kidney Priority: Secondary Status: Chronic Assessment and Plan: Trending renal function labs Will continue to monitor (7) Elevated troponin Priority: Secondary Status: Resolved Assessment and Plan: Troponin elevated 0.04 at admission, repeat 0.06, repeat 0.04 Troponins flat Original elevation likely secondary to demand ischemia Patient did not complain of chest pain or shortness of breath at admission or during hospital course We will continue to monitor Hospital course: Ms. Butler is a 67 year old female who presented from PCP office after being found to have fever 101. Patient reports that in the past week she has been very fatigued and has a headache that is located on the left temporal aspect, which was throbbing in nature and did not improve with sumatriptan. She reports usually her migraines are easily relieved by triptans. Headache radiates down to the neck. Patient denied recent upper respiratory tract infection, sick contacts, nausea, vomiting, diarrhea, abdominal pain, chest pain , shortness of breath, photophobia, phonophobia, blurry vision, double vision, syncope. She has a history of rheumatoid arthritis but does not take any immunosuppressants. She denies sick contacts. CT head negative, chest x-ray negative, UDS negative, lumbar puncture revealed CSF total cells 56, 24% lymphocyte, 54% neutrophils, and 12% monocytes, glucose 71, total protein 59, culture sent. MRI brain negative, started on acyclovir, vancomycin, ceftriaxone , and ampicillin. Neurology consulted who advised this was likely aseptic meningitis. The patient's clinical disposition continued to improve with supportive care and antibiotic microbial therapy. After 3 days antimicrobial therapy was withdrawn and the patient continued to improve subjectively and objectively. On the day of discharge patient was completely asymptomatic and hemodynamically stable with white count and temperature and heart rate within normal limits. CSF culture still did not show growth. Patient to be discharged in stable condition. Discharge discussed with: patient - Time Spent with Patient Total time spent providing and/or coordinating discharge services: - Discharge Medications Home Medications: Levothyroxine [Synthroid] 50 mcg PO 0630 05/25/18 [History] Omeprazole [PriLOSEC] 40 mg PO DAILY 05/25/18 [History] Raloxifene [Evista] 60 mg PO DAILY 05/25/18 [History] Ramelteon [Rozerem] 8 mg PO HS 05/25/18 [History] SUMAtriptan Succinate [Imitrex] 100 mg PO DAILY PRN 05/25/18 [History] Simvastatin [Zocor] 10 mg PO HS 05/25/18 [History] Topiramate [Topamax] 50 mg PO BID 05/25/18 [History] Tramadol HCl [Ultram] 50 mg PO Q4H PRN 05/25/18 [History] Allergies/Adverse Reactions: 3 Allergy/AdvReac Type Severity Reaction Status Date / Time Cortisone Allergy Difficulty Verified 08/14/15 15:32 Breathing Date of admission: 05/26/18 04:54 Primary care physician: Payton Paz CNP Consults: 05/26/18 07:56 Consult to Infectious Diseases [CONS] Routine Consulting Provider: [facility] [place] Reason for Consult: Possible meningitits Time Notified: 07:56 Call Completed: Yes Discharging clinician: Anthony Finley Anticipated date of discharge: 05/28/18 - Constitutional Vitals: Temp Pulse Resp BP Pulse Ox 98.5 F 84 20 135/79 100 05/28/18 08:28 05/28/18 08:28 05/28/18 08:28 05/28/18 08:28 05/28/18 08:28 Exam: Patient in no acute distress, Alert and oriented x 3 Cranial nerves 2-12 intact Heart in regular rate and rhythm without murmur or gallop Lungs clear to auscultation Abdomen soft and non tender with normal bowel sounds present Bilateral lower extremities non edematous 4/4 extremities 5/5 motor strength and normal sensation Kernig and Brudzinski signs negative - Patient Status Disposition: Home, Self-Care Condition: Good Functional capacity at discharge: independent ambulation Overall status at discharge: patient is back to baseline - Discharge Instructions Follow Up With: Payton Paz CNP [Primary Care Provider] - 05/31/18 2:15 pm (Pllease follow up as schedule...) - Diet and Activity Activity: resume usual activities as tolerated Diet: advance to your usual diet <DorajanierogerioLaurita - Last Filed: 05/28/18 12:57> Orders not resulted at time of discharge: Pending orders 05/26/18 15:37 HSV DNA [MOLMIC] Stat 05/28/18 08:03 Ionized Calcium,venous blood Routine 05/29/18 04:00 BMP [Basic Metabolic Panel] AM 0400 Complete Blood Count [HEME] AM 0400 Date of Encounter: 05/28/18 - Discharge Diagnosis (1) Meningitis Status: Resolved (2) Sepsis Status: Resolved Qualifiers: Sepsis type: sepsis due to unspecified organism Qualified Code(s): A41.9 - Sepsis, unspecified organism (3) Rheumatoid arthritis Status: Chronic Qualifiers: Rheumatoid arthritis location: unspecified site Rheumatoid factor presence : unspecified presence Qualified Code(s): M06.9 - Rheumatoid arthritis, unspecified (4) Hypothyroidism Status: Chronic Qualifiers: Hypothyroidism type: unspecified Qualified Code(s): E03.9 - Hypothyroidism , unspecified (5) GERD (gastroesophageal reflux disease) Status: Chronic Qualifiers: Esophagitis presence: esophagitis presence not specified Qualified Code(s) : K21.9 - Gastro-esophageal reflux disease without esophagitis (6) Congenital absence of one kidney Status: Chronic (7) Elevated troponin Status: Resolved Hospital course: Ms. Butler is a 67 year old female - Time Spent with Patient Total time spent providing and/or coordinating discharge services: Date of admission: 05/26/18 04:54 Primary care physician: Payton Paz CNP Consults: 05/26/18 07:56 Consult to Infectious Diseases [CONS] Routine Consulting Provider: [facility] [place] Reason for Consult: Possible meningitits Time Notified: 07:56 Call Completed: Yes - Constitutional Vitals: Temp Pulse Resp BP Pulse Ox 98.5 F 84 20 135/79 100 05/28/18 08:28 05/28/18 08:28 05/28/18 08:28 05/28/18 08:28 05/28/18 08:28 - Attending Attestation I examined this patient and my medical decision-making was reviewed with the Resident Physician Dr. Finley. I agree with the documented findings, disposition and treatment plan as described except to the extent set forth below. Ms. Butler is a 67-year-old female with a known past medical history of asthma , Gerd, migraines and hypothyroidism patient who has been having confusion headache neck pain and fever from most 10 to 14 days went to primary care office yesterday with fever headache and confusion. Patient was sent to ER for further evaluation. She had LP done in the ER, her CSF fluid analysis is concerning for bacterial infection. Patient was admitted in the hospital and started on broad-spectrum antibiotic and acyclovir. Pt states she is feeing much better today. Gen: A, A, O x 3 Chest : Diminished BS b/l Neuro: No meningitis signs.. A, A, O x 3. No neuro deficits a/p 1. Aseptic meningitis MRI of the brain - no signs of encephalitis CSF fluid - No growth so far ID recommend to stop all the abx Pt is off the abx for more than 24 hrs and remained afebrile.. Clinically she looks lot better today Medically stable to d/c home today
--- NOTE | 2018-05-28 10:34 | Infectious Disease Progress No ---
Date of Encounter: 05/28/18 Time of Encounter: 10:32 - Assessment and Plan (1) Sepsis Current Visit: Yes Status: Resolved The patient had 3 sepsis criteria on admission. Likely secondary to aseptic meningitis. Improved. Blood cultures obtained 05/25/18 are no growth to date 2 sets. Qualifiers: Sepsis type: sepsis due to unspecified organism Qualified Code(s): A41.9 - Sepsis, unspecified organism (2) Aseptic meningitis Current Visit: Yes Status: Acute Causative organism: Unclear. Status post lumbar puncture with CSF that showed pleocytosis. Gram stain and culture are negative. HSV PCR and VZV PCR are pending, but clinically this does not appear to be HSV encephalitis or VZV meningitis. The patient's mentation was fully intact and this appears to be strictly meningitis. Acyclovir discontinued. Antibiotics discontinued Continue to observe off antibiotics. Check respiratory infectious panel. Continue supportive care. Discussed with the primary team. (3) Headache Current Visit: Yes Status: Acute Likely secondary to meningitis. Improved. Pain management per the primary team. Qualifiers: Headache type: unspecified Headache chronicity pattern: acute headache Intractability: not intractable Qualified Code(s): R51 - Headache (4) Photophobia Current Visit: Yes Status: Acute Likely secondary to headache. Improved. (5) Elevated troponin Current Visit: Yes Status: Resolved Likely demand ischemia. (6) GERD (gastroesophageal reflux disease) Current Visit: Yes Status: Chronic Qualifiers: Esophagitis presence: esophagitis presence not specified Qualified Code(s) : K21.9 - Gastro-esophageal reflux disease without esophagitis (7) Hypothyroidism Current Visit: Yes Status: Chronic Qualifiers: Hypothyroidism type: unspecified Qualified Code(s): E03.9 - Hypothyroidism , unspecified (8) Rheumatoid arthritis Current Visit: Yes Status: Chronic Qualifiers: Rheumatoid arthritis location: unspecified site Rheumatoid factor presence : unspecified presence Qualified Code(s): M06.9 - Rheumatoid arthritis, unspecified - Subjective Interval history: Patient seen and examined. No acute events noted overnight. Patient states overall she feels fine and wants to go home. Denies any fevers or chills or rigors. Reports diffuse intermittent headache that is mild and improved since admission. Denies any neck pain or stiffness. Denies any chest pain, shortness of breath, or cough. She denies any nausea, vomiting, diarrhea, constipation. She denies any abdominal pain or urinary complaints, but she does report a poor appetite which is normal for her when she is sick she says. She denies any oral thrush or new skin lesions. Infect Dis PN-Objective Data - Labs CBC & Chem 7: 05/28/18 05:26 05/28/18 08:15 Labs: Laboratory Results - last 24 hr 05/28/18 05/28/18 05/28/18 05:26 05:26 08:15 WBC 9.3 RBC 3.64 L Hgb 10.8 L Hct 33.0 L MCV 90.7 MCH 29.7 MCHC 32.7 RDW 12.2 Plt Count 245 MPV 9.1 L Immature Gran % 0.4 Seg Neutrophils % 56.1 Lymphocytes % 32.5 Monocytes % 9.7 Eosinophils % 1.1 Basophils % 0.2 Neutrophils # 5.2 Lymphocytes # 3.0 Monocytes # 0.9 Eosinophils # 0.1 Basophils # 0.0 Sodium 135 L Potassium 3.1 L 3.1 L Chloride 106 Carbon Dioxide 20 L BUN 10 Creatinine 0.77 Est GFR ( Amer) > 60 Est GFR (Non-Af Amer) > 60 BUN/Creatinine Ratio 13 Glucose 90 Calculated Osmolality 279 L Calcium 8.2 L Magnesium 2.2 Exam - Constitutional Vitals: Temp Pulse Resp BP Pulse Ox 98.5 F 84 20 135/79 100 05/28/18 08:28 05/28/18 08:28 05/28/18 08:28 05/28/18 08:28 05/28/18 08:28 General appearance: average body habitus, cooperative, no acute distress - Head Head exam: Present: atraumatic, normal inspection, normocephalic - Eye Eye exam: Present: EOMI, normal appearance, PERRL Pupils: Present: normal accommodation - ENT ENT exam: Present: mucous membranes moist - Neck Neck exam: Present: normal inspection. Absent: meningismus - Respiratory Respiratory exam: Present: CTAB. Absent: rales, respiratory distress, rhonchi, wheezes - Cardiovascular Cardiovascular exam: Present: RRR, +S1, +S2 - GI/Abdominal GI/Abdominal exam: Present: normal bowel sounds, soft. Absent: distended, tenderness - Extremities Exam Extremities exam: Present: normal inspection. Absent: joint swelling, pedal edema, tenderness - Back Exam Back exam: Present: normal inspection - Neurological Exam Neurological exam: Present: alert, oriented X3, no focal deficits - Psychiatric Psychiatric exam: Present: normal affect, normal mood - Skin Skin exam: Present: dry, intact, normal color, warm Consult Discharge Plan - Plan Referrals: Payton Paz, TERRI [Primary Care Provider] -
[2018-05-28 11:25] LABS: Adenovirus Not Detected (Not Detect); Coronavirus 229E Not Detected (Not Detect); Coronavirus HKU1 Not Detected (Not Detect); Coronavirus NL63 Not Detected (Not Detect)
[2018-05-28 11:26] LABS: Bordetella Pertussis Not Detected (Not Detect); Chlamydophila pneumoniae Not Detected (Not Detect); Coronavirus OC43 Not Detected (Not Detect); Human Metapneumovirus Not Detected (Not Detect); Human Rhinovirus/Enterovirus Not Detected (Not Detect); Influenza A Subtype 2009 H1 Not Detected (Not Detect); Influenza A Untypeable Not Detected (Not Detect); Influenza B Not Detected (Not Detect); Mycoplasma pneumoniae Not Detected (Not Detect); Parainfluenza Virus 1 Not Detected (Not Detect); Parainfluenza Virus 2 Not Detected (Not Detect); Parainfluenza Virus 3 Not Detected (Not Detect); Parainfluenza Virus 4 Not Detected (Not Detect); Respiratory Syncytial Virus Not Detected (Not Detect)
[2018-05-29 11:10] LABS: HSV 1 Glycoprotein G IgG CSF 0.51 IV (<=0.89); HSV 2 Glycoprotein G IgG CSF 0.01 IV (<=0.89)
== END 2018-05-28 13:17 | disposition home or self-care (01) | DRG 872 ==
LOC: 2ANU 12:29 → EMEROOARM 12:29 → 2ANU 23:15 → SUATTDRO 05-26 04:54
PROVIDERS: ADMIT Internal Medicine Cardiovascular Disease; ATTEND Internal Medicine